=== PATIENT | female | born 1945 | race Caucasian/White ===

== ENCOUNTER 2016-06-17 12:13 | Inpatient (IN) | payer MEDICARE, OTHER ==
[~2016-06-17] VITALS: Ht 172.7 cm; Wt 62.7 kg
[~2016-06-17 12:13] MED LIST: ALBU8I INH; BUDE.5I NEB; HYDR-3580 PO; IPRA17I INH; LORA-475 PO; NEUR800T PO; NYSTA15T TOP; OLAN2.5 PO; PRED20 PO; QUET25 PO; RIVA10 PO; TUSSLIQ3 PO; Z.0.OXYGENDME NC
[2016-06-17 12:15] VITALS: BP 169/86; PULSE 106; RESP 16; TEMP 98.7; O2SAT 94
--- NOTE | 2016-06-17 12:37 | PD ---
HPI Chief Complaint: Pinon act Time Seen by Provider: 12:32 Travel History International Travel<30 days: No Contact w/Intl Traveler<30days: No Traveled to known affect area: No History of Present Illness HPI 70-year-old white female presents to emergency department under Pinon act by her medical doctor. The patient allegedly had refused to take her medications today. She has history of schizophrenia. They felt the patient was more paranoid and confused. The patient was placed under Pinon act and sent to the ER. The patient here denies any suicidal homicidal ideation. She states that she did take her medication yesterday. Review of the medication list indicates the patient didn't fact take her medications yesterday. The patient does complain of some upset stomach. She denies any fever chills. No nausea vomiting. No dysuria or frequency. No stooling issues. No toxic ingestions. No recent illnesses. PFSH Past Medical History Asthma: No Autoimmune Disease: No Blood Disorders: No Bipolar Disorder: Yes Anxiety: Yes Depression: Yes Cardiovascular Problems: Yes COPD: No Diabetes: No Diminished Hearing: No Gastrointestinal Disorders: Yes GERD: No Hepatitis: No Hiatal Hernia: No Hypertension: Yes Implanted Vascular Access Dvce: No Psychiatric: Yes Schizophrenia: Yes Sleep Apnea: No Ulcer: No PNEUMOCCOCAL Vaccine (Year): 2 Menopausal: Yes Past Surgical History Neurologic Surgery: Yes Other Surgery: Yes (PER MEDICAL RECORD) Social History Alcohol Use: No Tobacco Use: Yes (1 pack every 10 days) Substance Use: No Allergies-Medications (Allergen,Severity, Reaction): Coded Allergies: No Known Allergies (Verified , 06/17/16) Reported Meds & Prescriptions Reported Meds & Active Scripts Active Reported Geodon (Ziprasidone) 80 Mg Cap 160 Mg PO HS Quetiapine (Quetiapine Fumarate) 50 Mg Tab 50 Mg PO BID PRN Geodon (Ziprasidone) 80 Mg Cap 80 Mg PO DAILY Mapap (Acetaminophen) 325 Mg Tab 650 Mg PO Q4HR PRN Olanzapine 2.5 Mg Tab 2.5 Mg PO BID Lorazepam 2 Mg Tab 2 Mg PO BID Gabapentin 800 Mg Tab 800 Mg PO BID Prednisone 5 Mg Tab 5 Mg PO DAILY Thera-M (Multiple Vitamins W/ Minerals) 1 Tab 1 Tab PO DAILY Review of Systems ROS Limitations: Poor Historian Except as stated in HPI: all other systems reviewed are Neg Psychiatric: No: Anxiety, Depression, Suicidal Ideations, Disorder of Thought, Mood Disorder, Substance Abuse, Homicidal Ideation Physical Exam Narrative GENERAL: Well-nourished, well-developed patient. Patient is sitting in a chair holding onto her walker. Patient does have smacking. SKIN: Warm and dry. HEAD: Normocephalic and atraumatic. EYES: No scleral icterus. No injection or drainage. ENT: No nasal drainage noted. Mucous membranes pink. Airway patent. NECK: Supple, trachea midline. Moves head freely without obvious discomfort. CARDIOVASCULAR: Regular rate and rhythm 1/6 left sternal border. No gallops, or rubs. RESPIRATORY: Breath sounds equal bilaterally. No accessory muscle use. GASTROINTESTINAL: Abdomen soft, non-tender, nondistended. EXTREMITIES: No cyanosis or edema. BACK: Nontender without obvious deformity. No CVA tenderness. NEURO: Patient is alert and oriented to person and place. no sensorimotor deficits. Nonfocal. Normal speech. PSYCH: No delusions. No auditory or visual hallucinations. Data Data Last Documented VS Vital Signs Date Time Temp Pulse Resp B/P Pulse Ox O2 Delivery O2 Flow Rate FiO2 06/17/16 13:14 98.5 104 20 127/73 95 Room Air Orders Complete Blood Count With Diff (06/17/16 12:31) Comprehensive Metabolic Panel (06/17/16 12:31) Urinalysis - C+S If Indicated (06/17/16 12:31) Drug Screen, Random Urine (06/17/16 12:31) Electrocardiogram (06/17/16 12:31) Alcohol (Ethanol) (06/17/16 12:31) Psych Screen (06/17/16 12:31) Labs Laboratory Tests Test 06/17/16 13:20 White Blood Count 8.5 TH/MM3 Red Blood Count 5.07 MIL/MM3 Hemoglobin 14.9 GM/DL Hematocrit 44.7 % Mean Corpuscular Volume 88.3 FL Mean Corpuscular Hemoglobin 29.5 PG Mean Corpuscular Hemoglobin 33.4 % Concent Red Cell Distribution Width 14.5 % Platelet Count 281 TH/MM3 Mean Platelet Volume 8.7 FL Neutrophils (%) (Auto) 69.8 % Lymphocytes (%) (Auto) 19.6 % Monocytes (%) (Auto) 8.5 % Eosinophils (%) (Auto) 1.3 % Basophils (%) (Auto) 0.8 % Neutrophils # (Auto) 5.9 TH/MM3 Lymphocytes # (Auto) 1.7 TH/MM3 Monocytes # (Auto) 0.7 TH/MM3 Eosinophils # (Auto) 0.1 TH/MM3 Basophils # (Auto) 0.1 TH/MM3 CBC Comment DIFF FINAL Differential Comment Sodium Level 138 MEQ/L Potassium Level 4.6 MEQ/L Chloride Level 102 MEQ/L Carbon Dioxide Level 29.4 MEQ/L Anion Gap 7 MEQ/L Blood Urea Nitrogen 7 MG/DL Creatinine 0.73 MG/DL Estimat Glomerular Filtration 79 ML/MIN Rate Random Glucose 100 MG/DL Calcium Level 9.2 MG/DL Total Bilirubin 0.5 MG/DL Aspartate Amino Transf 32 U/L (AST/SGOT) Alanine Aminotransferase 20 U/L (ALT/SGPT) Alkaline Phosphatase 113 U/L Total Protein 7.4 GM/DL Albumin 3.4 GM/DL Ethyl Alcohol Level LESS THAN 3 MG/DL MDM Medical Decision Making Medical Screen Exam Complete: Yes Emergency Medical Condition: Yes Medical Record Reviewed: Yes Interpretation(s) Laboratory Tests Test 06/17/16 13:20 White Blood Count 8.5 TH/MM3 Red Blood Count 5.07 MIL/MM3 Hemoglobin 14.9 GM/DL Hematocrit 44.7 % Mean Corpuscular Volume 88.3 FL Mean Corpuscular Hemoglobin 29.5 PG Mean Corpuscular Hemoglobin 33.4 % Concent Red Cell Distribution Width 14.5 % Platelet Count 281 TH/MM3 Mean Platelet Volume 8.7 FL Neutrophils (%) (Auto) 69.8 % Lymphocytes (%) (Auto) 19.6 % Monocytes (%) (Auto) 8.5 % Eosinophils (%) (Auto) 1.3 % Basophils (%) (Auto) 0.8 % Neutrophils # (Auto) 5.9 TH/MM3 Lymphocytes # (Auto) 1.7 TH/MM3 Monocytes # (Auto) 0.7 TH/MM3 Eosinophils # (Auto) 0.1 TH/MM3 Basophils # (Auto) 0.1 TH/MM3 CBC Comment DIFF FINAL Differential Comment Sodium Level 138 MEQ/L Potassium Level 4.6 MEQ/L Chloride Level 102 MEQ/L Carbon Dioxide Level 29.4 MEQ/L Anion Gap 7 MEQ/L Blood Urea Nitrogen 7 MG/DL Creatinine 0.73 MG/DL Estimat Glomerular Filtration 79 ML/MIN Rate Random Glucose 100 MG/DL Calcium Level 9.2 MG/DL Total Bilirubin 0.5 MG/DL Aspartate Amino Transf 32 U/L (AST/SGOT) Alanine Aminotransferase 20 U/L (ALT/SGPT) Alkaline Phosphatase 113 U/L Total Protein 7.4 GM/DL Albumin 3.4 GM/DL Ethyl Alcohol Level LESS THAN 3 MG/DL Differential Diagnosis MDM: High Differential diagnoses: Schizophrenia, schizoaffective disorder, bipolar, anxiety, depression, adjustment reaction, mood disorder NOS, ODD, depressive disorder NOS, dementia, dementia with agitation, psychosis NOS, substance induced mood disorder, intermittent explosive disorder, Asperger syndrome, infection,electrolyte abnormality, malingering. Narrative Course Mental health screening discussed with the patient. Psychiatric screen ordered. Condition: Stable Pedro Rhoades Jun 17, 2016 12:37
[2016-06-17 13:14] VITALS: BP 127/73; PULSE 104; RESP 20; TEMP 98.5; O2SAT 95
[2016-06-17 13:42] LABS: AUTOMATED NEUTROPHIL # 5.9 TH/MM3 (1.8-7.7); BASOPHIL # 0.1 TH/MM3 (0-0.2); BASOPHIL % 0.8 % (0.0-2.0); EOSINOPHIL # 0.1 TH/MM3 (0-0.4); EOSINOPHIL % 1.3 % (0.0-4.0); HEMATOCRIT 44.7 % (35.0-46.0); HEMO FLAGS DIFF FINAL; LYMPH % 19.6 % (9.0-44.0); LYMPHOCYTE # 1.7 TH/MM3 (1.0-4.8); MEAN CELL VOLUME 88.3 FL (80.0-100.0); MEAN CORPUSCULAR HEMOGLOBIN 29.5 PG (27.0-34.0); MEAN CORPUSCULAR HGB CONC 33.4 % (32.0-36.0); MONO % 8.5 % (0.0-8.0); NEUT % 69.8 % (16.0-70.0); PLATELET COUNT 281 TH/MM3 (150-450); RED BLOOD COUNT 5.07 MIL/MM3 (4.00-5.30); RED CELL DISTRIBUTION WIDTH 14.5 % (11.6-17.2); WHITE BLOOD COUNT 8.5 TH/MM3 (4.0-11.0)
[2016-06-17] MEDS ORDERED: PRED5TAB PO (13:45)
[2016-06-17] MEDS ORDERED: OLAN2.5T PO (13:45)
[2016-06-17] MEDS ORDERED: QUET5TAB PO (13:45)
[2016-06-17] MEDS ORDERED: LORA2TAB7 PO (13:45)
[2016-06-17] MEDS ORDERED: THERTAB17 PO (13:45)
[2016-06-17] MEDS ORDERED: MAPA325T PO (13:45)
[2016-06-17] MEDS ORDERED: GEOD80CA PO ×2 (13:45)
[2016-06-17] MEDS ORDERED: GABA800T PO (13:45)
[2016-06-17 13:55] LABS: ANION GAP 7 MEQ/L (5-15); AST (GOT) 32 U/L (15-37); BICARBONATE 29.4 MEQ/L (21.0-32.0); BLOOD UREA NITROGEN 7 MG/DL (7-18); CHLORIDE 102 MEQ/L (98-107); GLOMERULAR FILTRATION RATE 79 ML/MIN (>89); SODIUM (NA) 138 MEQ/L (136-145)
[2016-06-17 13:56] LABS: POTASSIUM 4.6 MEQ/L (3.5-5.1)
[2016-06-17 14:04] LABS: ALKALINE PHOSPHATASE 113 U/L (45-117); ALT (GPT) 20 U/L (10-53); TOTAL BILIRUBIN ADULT 0.5 MG/DL (0.2-1.0)
[2016-06-17 16:12] LABS: BLOOD, URINE NEG (NEG); COMMENT (UR) CULT NOT INDICATED; CULTURE IF INDICATED CULT NOT INDICATED; GLUCOSE,URINE NEG (NEG); KETONE, URINE NEG (NEG); NITRITE,URINE NEG (NEG); PH, URINE 6.5 (5.0-8.5); SQUAMOUS EPITHELIAL CELL URINE 10 /hpf (0-5); URINE COLOR YELLOW (YELLW/STRAW)
[2016-06-17 16:35] LABS: AMPHETAMINE, URINE NEG (NEG); BARBITURATES, URINE NEG (NEG); COCAINE, URINE NEG (NEG)
[2016-06-17 18:39] VITALS: BP 158/76; PULSE 90; RESP 18; O2SAT 96
[2016-06-17 19:12] VITALS: BP 156/72; PULSE 86; RESP 20; O2SAT 96
[2016-06-17] MEDS ORDERED: OLANZapine ODT 5 MG TAB PO ONE (20:45)
[2016-06-17] MEDS ORDERED: OLANZapine IM 10 MG VIAL IM ONE (20:45)
[2016-06-17 22:36] VITALS: BP 138/91; PULSE 92; RESP 18; O2SAT 95
[2016-06-18 02:00] VITALS: RESP 20
[2016-06-18 06:22] VITALS: RESP 18
[2016-06-18] MEDS ORDERED: ACETAMINOPHEN 325 MG TAB PO PRN (07:15)
[2016-06-18] MEDS ORDERED: MAGNESIUM HYDROXIDE SUSP 30 ML CUP PO PRN (07:15)
[2016-06-18] MEDS ORDERED: ALUMINUM/MAGNESIUM/SIMETH 30 ML CUP PO PRN (07:15)
[2016-06-18] MEDS ORDERED: OLANZapine IM 10 MG VIAL IM ONE (07:15)
--- NOTE | 2016-06-18 07:19 | HHI.HP ---
Provisional Diagnosis Admission Date Jun 18, 2016 at 07:02 [place] I. 1. Schizoaffective disorder, bipolar type, acute exacerbation [place] II. Deferred [place] V. GAF is 30 presently Certification of Person's Competence To Provide Express and Informed Consent I have personally examined Camilla Sun , a person being served at [facility] on, Jun 18, 2016 07:10. Express and informed consent means consent voluntarily given in writing, by a competent person, after sufficient explanation and disclosure of the subject matter involved to enable the person to make a knowing and willful decision without any element of force, fraud, deceit, duress, or other form of constraint or coercion. This person is 18 years of age or older, is not now known to be incompetent to consent to treatment with a guardian advocate, and does not have a health care surrogate or proxy currently making medical treatment decisions. I have found this person to be one of the following: [] Competent to provide express and informed consent, as defined above, for voluntary admission to this facility and is competent to provide express and informed consent for treatment. He/she has the consistent capacity to make well reasoned, willful, and knowing decisions concerning his or her medical or mental health treatment. The person fully and consistently understands the purpose of the admission for examination/placement and is fully capable of personally exercising all rights [place] [x] Incompetent to provide express and informed consent to voluntary admission, and this is incompetent to provide express and informed consent to treatment. The person must be transferred to involuntary status and a petition for a guardian advocate filed with the Circuit Court. [] Refusing to provide express and informed consent to voluntary admission but is competent to provide express and informed consent for treatment. The person must be discharged or transferred to involuntary status. Form shall be completed within 24 hours of a person's arrival at the receiving facility and filed in the clinical record of each person: 1. Admitted on a voluntary basis 2. Permitted to provide express and informed consent to his/her own treatment 3. Allowed to transfer from involuntary to voluntary status 4. Prior to permitting a person to consent to his or her own treatment after having been previously found incompetent to consent to treatment. History of Present Illness Capacity: Lacks Capacity HPI Ms. Sun is a 70-year-old female with a history of bipolar illness versus primary psychotic disorder who presents under a Pinon act from her [facility] facility alleging agitation and medication refusal. Reviewing the electronic medical record, I note the patient was admitted psychiatrically most recently here under Dr. Garcia in 2012 with a discharge diagnosis of bipolar manic. Patient seen and examined. Case discussed with nurse in the J-pod. Per nursing staff, patient has been quite agitated in the J-pod and has required Zyprexa IM for the management of agitation. On my examination this morning, patient is apparently somewhat calmer than she had previously been her remains quite irritable and irascible. Her thought process is quite disorganized. She says "I don't know why" she is here. She is oriented to person and [place]. She denies living at [facility]. She says "they moved to fast. The room is bugged. I can't take it anymore over there. I don't want to stay there. I don 't want to stay here." When I ask about audiovisual hallucination she says "I have voices. Loud couch." She also endorses hearing static. She is quite dysphoric. She denies any SI or HI but seems unreliable to contract for safety in her present state. Limited psychiatric interview because of patient's degree of thought disorganization. Unable to obtain meaningful past psychiatric, family, chemical dependency or social history from the patient because of her degree of thought disorganization. She apparently has some sort of history. She is unable to tell me what branch of the that she served in. She says that she is unmarried and has no children. She says that she attended [employer] but cannot tell me what she studied there. I reviewed the documentation that accompanied the patient from her facility including the medication administration record. Review of Systems ROS Limitations: Uncooperative, Psychotic, Poor Historian Other Patient complains of a burning sensation in her skin as well as some shortness of breath. No other physical complaints at this time. Past Psych History Psychological trauma history Unable to obtain due to thought disorganization Violence risk - others (6 mos) Elevated. Patient is irritable and agitated Violence risk - self (6 mos) Concerned that this is elevated due to self-neglect in the setting of psychosis Substance Abuse History Drugs/Alcohol past 12 months Unable to obtain from patient due to thought disorganization. Toxicology negative. Past Family Social History Coded Allergies: No Known Allergies (Verified , 06/17/16) Past Medical History See electronic medical record Reported Medications Ziprasidone (Geodon)80 Mg [id number] Mg PO HS #60 CAP Ref 0 06/17/16 Quetiapine 50 Mg Tab50 Mg PO BID PRN (AGITATION) #60 TAB Ref 0 06/17/16 Ziprasidone (Geodon)80 Mg Cap80 Mg PO DAILY #60 CAP Ref 0 06/17/16 Acetaminophen (Mapap)325 Mg [id number] Mg PO Q4HR PRN (PAIN) Ref 0 06/17/16 Olanzapine 2.5 Mg Tab2.5 Mg PO BID #60 TAB Ref 0 06/17/16 Lorazepam 2 Mg Tab2 Mg PO BID Ref 0 06/17/16 Gabapentin 800 Mg [id number] Mg PO BID #90 TAB Ref 0 06/17/16 Prednisone 5 Mg Tab5 Mg PO DAILY Ref 0 06/17/16 Multiple Vitamins W/ Minerals (Thera-M)1 Tab1 Tab PO DAILY Ref 0 06/17/16 Discontinued Reported Medications Tussin Dm 2 Tsp PO Q6 PRN (NASAL CONGESTION AND/OR COUGH) 04/23/14 Discontinued Scripts Budesonide (Pulmicort)0.5 Mg/2 Ml Sus0.5 Mg NEB Q12HR NEB 30 Days Prov:Melina Chambers MD 02/25/16 Atrovent Hfa17 Mcg 12.9 Gm Aero2 Puff INH QID PRN (sob/wheezing ) 30 Days Prov:Melina Chambers MD 02/25/16 Albuterol Sulfate 8 GM Inhaler (Ventolin Hfa)8 Gm Aero2 Puff INH Q6 #1 BOX * SHAKE WELL BEFORE USE * Prov:Melina Chambers MD 02/25/16 Prednisone (Deltasone 20 Mg Tab)20 Mg Tab20 Mg PO DAILY #6 TAB Prov:Melina Chambers MD 02/24/16 Rivaroxaban (Xarelto 10 Mg Tab)10 Mg Tab10 Mg PO DAILY #14 TAB Prov:KRYS PARKER PA-C 02/22/16 Hydrocodone/Acetaminophen 7.5 mg/325 mg 1 Tab1 Tab PO Q4H PRN (PAIN) #60 TAB Prov:KRYS PARKER PA-C 02/22/16 Nystatin (Mycostatin Oint 15 gm)15 Applic/15 Gm Oint1 Applic TOP Q12 7 Days Prov:Stephania Alcazar MD 05/08/14 Current Medications Medications (Trade) Dose Ordered Sig/Britany Route Start Time Stop Time Status Last Admin (Neurontin) 800 mg BID PO 06/18/16 09:00 UNV (Ativan) 2 mg BID PO 06/18/16 09:00 UNV (Theragran M Tab) 1 tab DAILY PO 06/18/16 09:00 UNV (Deltasone) 5 mg DAILY PO 06/18/16 09:00 UNV (Ativan) 0.5 mg Q12H PRN PO 06/18/16 07:15 UNV (Ativan Inj) 0.5 mg Q12H PRN IM 06/18/16 07:15 UNV (Benadryl) 50 mg Q6H PRN PO 06/18/16 07:15 UNV (Benadryl Inj) 50 mg Q6H PRN IM 06/18/16 07:15 UNV (Benadryl) 50 mg HS PRN PO 06/18/16 07:15 UNV (Tylenol) 650 mg Q4H PRN PO 06/18/16 07:15 UNV (Milk Of Magnesia Liq) 30 ml DAILY PRN PO 06/18/16 07:15 UNV (Mag-Al Plus Susp Liq) 30 ml Q6H PRN PO 06/18/16 07:15 UNV (Habitrol 21 Mg Patch.24 Hr) 1 patch DAILY T-DERMAL 06/18/16 09:00 UNV Miscellaneous Information 1 DAILY T-DERMAL 06/18/16 09:00 UNV (Geodon) 80 mg BIDPC PO 06/18/16 09:00 UNV (ZyPREXA ZYDIS ODT) 5 mg Q12HR PO 06/18/16 09:00 UNV Family History Unable to obtain from patient due to thought disorganization Social History Unable to obtain from patient due to thought disorganization Patient's Strengths (min. 2) In a monitored setting. Verbally fluent. Physical Exam Physical examination was completed in the emergency room by the ER staff and the patient was medically cleared. On my examination today, I note the patient has several small lesions scattered around her body, I can to bite hurley but otherwise has no visible skin lesions. No motoric abnormalities noted. Labs and vital signs reviewed. Vital Signs Vital Signs Date Time Temp Pulse Resp B/P Pulse Ox O2 Delivery O2 Flow Rate FiO2 06/18/16 06:22 18 06/17/16 22:36 92 138/91 95 06/17/16 18:39 Room Air 06/17/16 13:14 98.5 Lab Results Item Value Date Time White Blood Count 8.5 TH/MM3 06/17/16 1320 Hemoglobin 14.9 GM/DL 06/17/16 1320 Platelet Count 281 TH/MM3 06/17/16 1320 Sodium Level 138 MEQ/L 06/17/16 1320 Potassium Level 4.6 MEQ/L 06/17/16 1320 Carbon Dioxide Level 29.4 MEQ/L 06/17/16 1320 Chloride Level 102 MEQ/L 06/17/16 1320 Blood Urea Nitrogen 7 MG/DL 06/17/16 1320 Creatinine 0.73 MG/DL 06/17/16 1320 Aspartate Amino Transf (AST/SGOT) 32 U/L 06/17/16 1320 Alanine Aminotransferase (ALT/SGPT) 20 U/L 06/17/16 1320 Alkaline Phosphatase 113 U/L 06/17/16 1320 Toxicology alcohol level negative. Urinalysis fairly bland. Mental Status Examination Patient is in hospital gown. She is disheveled. She is awake and alert and oriented to person and [place]. No abnormal motor movements noted. Speech is rambling and somewhat garbled. Language and fund of knowledge are difficult to assess given thought disorganization but may be somewhat reduced for age. Mood and affect are quite dysphoric and restricted. Thought process disorganized. Loosening of associations present. Patient appears frankly internally stimulated. Paranoia is present. Audiovisual hallucinations are present. She denies SI or HI but is likely unreliable to contract for safety. Insight and judgment are presently poor. Previous Suicide Attempts: No Previous Homicide Attempts: No Assessment & Plan Problem List: (1) Schizoaffective disorder ICD Code: F25.9 Assessment & Plan Estimated LOS: days this is a 70-year-old female with psychiatric history as detailed above presents under a Pinon act from her care facility. On my examination today, patient remains quite irritable and disorganized and appears to be experiencing a decompensated psychotic episode. She requires psychiatric admission at this time for safety, observation and stabilization. --Admit inpatient --Involuntary status. I completed first opinion. Consult for second opinion. Request healthcare surrogate and guardian advocate. --Consult the hospitalist for management of patient's medical conditions --Consult physical therapy. Fall precautions. --Patient does seem to of had a positive response to Zyprexa and I note that she is prescribed this at her facility. I will taper her Geodon somewhat and titrate her Zyprexa. I will continue her scheduled Ativan. --Additional Ativan/Benadryl as needed for anxiety. Benadryl also as needed for EPS or insomnia. --Vitals every shift --Counselors to see --Disposition planning --Estimated length of stay: 10-13 days Discharge Planning Per Dr. Stern Request HC Surrog/Guard Advoc?: Yes Problem Qualifiers (1) Schizoaffective disorder: Qualified Code: F25.0 - Schizoaffective disorder, bipolar type El Garcia MD Jun 18, 2016 07:19
[2016-06-18 09:00] VITALS: BP 127/90; PULSE 80; RESP 16
[2016-06-18] MEDS: LORazepam 2 MG TAB PO SCH ×2 (09:00→20:04)
[2016-06-18] MEDS: OLANZapine ODT 5 MG TAB PO SCH ×2 (09:00→20:04)
[2016-06-18] MEDS: REMOVE OLD PATCH T-DERMAL SCH (09:00)
[2016-06-18] MEDS: ZIPRASIDONE HCL 80 MG CAP PO SCH ×2 (09:00→17:43)
--- NOTE | 2016-06-18 09:32 | PD.CONS ---
Provisional Diagnosis Admission Date Jun 18, 2016 at 07:02 [place] [facility]. 1. Schizoaffective disorder, bipolar type, acute exacerbation [place] II. Deferred [place] V. GAF is 30 presently History of Present Illness Service Psychiatry Consult Requested By Primary Care Physician No Primary Care Physician HPI Ms. Sun is a 70-year-old female with a history of bipolar illness versus primary psychotic disorder who presents under a Pinon act from her [facility] facility alleging agitation and medication refusal. Reviewing the electronic medical record, I note the patient was admitted psychiatrically most recently here under Dr. Garcia in 2012 with a discharge diagnosis of bipolar manic. Patient seen and examined. Case discussed with nurse in the J-pod. Per nursing staff, patient has been quite agitated in the J-pod and has required Zyprexa IM for the management of agitation. On my examination this morning, patient is apparently somewhat calmer than she had previously been her remains quite irritable and irascible. Her thought process is quite disorganized. She says "I don't know why" she is here. She is oriented to person and [place]. She denies living at [facility]. She says "they moved to fast. The room is bugged. I can't take it anymore over there. I don't want to stay there. I don 't want to stay here." When I ask about audiovisual hallucination she says "I have voices. Loud couch." She also endorses hearing static. She is quite dysphoric. She denies any SI or HI but seems unreliable to contract for safety in her present state. Limited psychiatric interview because of patient's degree of thought disorganization. Unable to obtain meaningful past psychiatric, family, chemical dependency or social history from the patient because of her degree of thought disorganization. She apparently has some sort of history. She is unable to tell me what branch of the that she served in. She says that she is unmarried and has no children. She says that she attended [employer] but cannot tell me what she studied there. I reviewed the documentation that accompanied the patient from her facility including the medication administration record. 06/18/16 Above note dictated by Dr. El garcia reviewed and agreed with. Patient is 70-year-old white female well known to us from multiple prior hospitalizations comes her under Pinon act from her intermediate. Patient seen and initially admitted by to the 2500 unit per I will follow the patient. Dr. Garcia has signed first opinion petition supporting Pinon act. Patient seen by me on unit patient continues loud intrusive profane with rapid pressured speech showing no insight into her disease. At this time I agree with Dr. chair olsen patient does meet criteria for involuntary psychiatric hospitalization under the Pinon act. Thus I'll cosign second opinion petition supporting Pinon act Past Family Social History Coded Allergies: No Known Allergies (Verified , 06/17/16) Reported Medications Ziprasidone (Geodon)80 Mg [id number] Mg PO HS #60 CAP Ref 0 06/17/16 Quetiapine 50 Mg Tab50 Mg PO BID PRN (AGITATION) #60 TAB Ref 0 06/17/16 Ziprasidone (Geodon)80 Mg Cap80 Mg PO DAILY #60 CAP Ref 0 06/17/16 Acetaminophen (Mapap)325 Mg [id number] Mg PO Q4HR PRN (PAIN) Ref 0 06/17/16 Olanzapine 2.5 Mg Tab2.5 Mg PO BID #60 TAB Ref 0 06/17/16 Lorazepam 2 Mg Tab2 Mg PO BID Ref 0 06/17/16 Gabapentin 800 Mg [id number] Mg PO BID #90 TAB Ref 0 06/17/16 Prednisone 5 Mg Tab5 Mg PO DAILY Ref 0 06/17/16 Multiple Vitamins W/ Minerals (Thera-M)1 Tab1 Tab PO DAILY Ref 0 06/17/16 Discontinued Reported Medications Tussin Dm 2 Tsp PO Q6 PRN (NASAL CONGESTION AND/OR COUGH) 04/23/14 Discontinued Scripts Budesonide (Pulmicort)0.5 Mg/2 Ml Sus0.5 Mg NEB Q12HR NEB 30 Days Prov:Melina Chambers MD 02/25/16 Atrovent Hfa17 Mcg 12.9 Gm Aero2 Puff INH QID PRN (sob/wheezing ) 30 Days Prov:Melina Chambers MD 02/25/16 Albuterol Sulfate 8 GM Inhaler (Ventolin Hfa)8 Gm Aero2 Puff INH Q6 #1 BOX * SHAKE WELL BEFORE USE * Prov:Melina Chambers MD 02/25/16 Prednisone (Deltasone 20 Mg Tab)20 Mg Tab20 Mg PO DAILY #6 TAB Prov:Melina Chambers MD 02/24/16 Rivaroxaban (Xarelto 10 Mg Tab)10 Mg Tab10 Mg PO DAILY #14 TAB Prov:KRYS PARKER PA-C 02/22/16 Hydrocodone/Acetaminophen 7.5 mg/325 mg 1 Tab1 Tab PO Q4H PRN (PAIN) #60 TAB Prov:KRYS PARKER PA-C 02/22/16 Nystatin (Mycostatin Oint 15 gm)15 Applic/15 Gm Oint1 Applic TOP Q12 7 Days Prov:Stephania Alcazar MD 05/08/14 Current Medications Medications (Trade) Dose Ordered Sig/Britany Route Start Time Stop Time Status Last Admin (Neurontin) 800 mg BID PO 06/18/16 09:00 (Ativan) 2 mg BID PO 06/18/16 09:00 (Theragran M Tab) 1 tab DAILY PO 06/18/16 09:00 (Deltasone) 5 mg DAILY PO 06/18/16 09:00 (Ativan) 0.5 mg Q12H PRN PO 06/18/16 07:15 (Ativan Inj) 0.5 mg Q12H PRN IM 06/18/16 07:15 (Benadryl) 50 mg Q6H PRN PO 06/18/16 07:15 (Benadryl Inj) 50 mg Q6H PRN IM 06/18/16 07:15 (Benadryl) 50 mg HS PRN PO 06/18/16 07:15 (Tylenol) 650 mg Q4H PRN PO 06/18/16 07:15 (Milk Of Magnesia Liq) 30 ml DAILY PRN PO 06/18/16 07:15 (Mag-Al Plus Susp Liq) 30 ml Q6H PRN PO 06/18/16 07:15 (Habitrol 21 Mg Patch.24 Hr) 1 patch DAILY T-DERMAL 06/18/16 09:00 Miscellaneous Information 1 DAILY T-DERMAL 06/18/16 09:00 (Geodon) 80 mg BIDPC PO 06/18/16 09:00 (ZyPREXA ZYDIS ODT) 5 mg Q12HR PO 06/18/16 09:00 Patient's Strengths (min. 2) In a monitored setting. Verbally fluent. Physical Exam Vital Signs Vital Signs Date Time Temp Pulse Resp B/P Pulse Ox O2 Delivery O2 Flow Rate FiO2 06/18/16 06:22 18 06/17/16 22:36 92 138/91 95 06/17/16 18:39 Room Air 06/17/16 13:14 98.5 Mental Status Examination Alert confusing loud profane intense elderly white female with intense eye contact Appearance Disheveled Speech: Pressured, Rapid, Circumstantial, Tangential Orientation: Person Memory: Impaired (describe) Thought Process: Loose Association Thought Content: Paranoid (mildly) Language Burmese Fund of Knowledge Poor Hallucination Type: None (denies) Attention and Concentration: Easily Distracted Suicidal Ideation: No (vague) Previous Suicide Attempts: No Homicidal Ideation: No Previous Homicide Attempts: No Insight: Poor Judgement: Poor Affect: Other (increased range and intensity) Mood: Angry, Irritable, Manic Motor Activity: Normal gait Assessment & Plan Problem List: (1) Schizoaffective disorder ICD Code: F25.9 Assessment & Plan Estimated LOS: 5-7 days patient does meet criteria for involuntary psychiatric hospitalization Dr. garcia has done first opinion petition supporting Pinon act I have done second opinion supporting it also. I also concurred that patient does not have capacity we'll ask for healthcare surrogate and guardian advocate Continue medications per the reconciliation further assess Discharge Planning To be determined Request HC Surrog/Guard Advoc?: Yes Problem Qualifiers (1) Schizoaffective disorder: Qualified Code: F25.0 - Schizoaffective disorder, bipolar type Brad Stern MD Jun 18, 2016 09:32
[2016-06-18] MEDS: LORazepam 2 MG/ML VIAL IM PRN (10:51)
--- NOTE | 2016-06-18 12:00 | EKG ---
Date Performed: 06/17/2016 Time Performed: 13:11:22 PTAGE: 70 years EKG: Sinus rhythm NORMAL ECG PREVIOUS TRACING : 02/11/2016 17.38 DOCTOR: Glen Brizuela Interpretating Date/Time 06/18/2016 11:58:49
[2016-06-18] MEDS: GABAPENTIN 400 MG CAP PO SCH ×2 (13:00→20:04)
[2016-06-18] MEDS: predniSONE 5 MG TAB PO SCH (13:00)
[2016-06-18] MEDS: NICOTINE 21 MG/24 HR PATCH T-DERMAL SCH (13:01)
[2016-06-18] MEDS: MULTIVITAMINS/MINERALS THERAPEUTIC TAB PO SCH (13:01)
--- NOTE | 2016-06-18 14:21 | PD.CONS ---
HPI Service [facility] Consult Requested By Psychiatry team Reason for Consult Medical management Primary Care Physician No Primary Care Physician Diagnoses: History of Present Illness Patient is a 70-year-old white female who came in to the hospital under Pinon act by her medical doctor. As per ED notes patient has refused to take her medications, with history of schizophrenia, medical doctor thinks that patient is more paranoid and confused. Admitted to inpatient psychiatry unit for further evaluation. Consulted for medical management. Patient seen today. States she is doing well. Occasional shortness of breath and cough, nonproductive. Otherwise, denies pain and discomfort. Denies chest pain, palpitations, headaches, dizziness. Denies fevers, chills, n/v/d. Patient reports she continues to smoke, but now since being inpatient psych she has the patch Review of Systems ROS Limitations: Poor Historian Constitutional: COMPLAINS OF: Fever, DENIES: Chills Respiratory: COMPLAINS OF: Cough, Wheezing, Sputum production, Shortness of breath Cardiovascular: COMPLAINS OF: Dyspnea on Exertion, Orthopnea, DENIES: Chest pain, Palpitations Gastrointestinal: DENIES: Constipation, Diarrhea, Nausea, Vomiting Neurologic: DENIES: Headache, Paresthesias Past Family Social History Allergies: Coded Allergies: No Known Allergies (Verified , 06/17/16) Past Medical History Bipolar disorder Anxiety Depression Schizophrenia History of respiratory failure, COPD 02/2016 Past Surgical History 02/2016 status post left bipolar hemiarthroplasty Reported Medications Geodon (Ziprasidone) 80 Mg Cap 160 Mg PO HS Quetiapine (Quetiapine Fumarate) 50 Mg Tab 50 Mg PO BID PRN Geodon (Ziprasidone) 80 Mg Cap 80 Mg PO DAILY Mapap (Acetaminophen) 325 Mg Tab 650 Mg PO Q4HR PRN Olanzapine 2.5 Mg Tab 2.5 Mg PO BID Lorazepam 2 Mg Tab 2 Mg PO BID Gabapentin 800 Mg Tab 800 Mg PO BID Prednisone 5 Mg Tab 5 Mg PO DAILY Thera-M (Multiple Vitamins W/ Minerals) 1 Tab 1 Tab PO DAILY Active Ordered Medications Current Medications Medications (Trade) Dose Ordered Sig/Britany Route Start Time Stop Time Status Last Admin (Neurontin) 800 mg BID PO 06/18/16 09:00 06/18/16 13:00 (Ativan) 2 mg BID PO 06/18/16 09:00 (Theragran M Tab) 1 tab DAILY PO 06/18/16 09:00 06/18/16 13:01 (Deltasone) 5 mg DAILY PO 06/18/16 09:00 06/18/16 13:00 (Ativan) 0.5 mg Q12H PRN PO 06/18/16 07:15 (Ativan Inj) 0.5 mg Q12H PRN IM 06/18/16 07:15 06/18/16 10:51 (Benadryl) 50 mg Q6H PRN PO 06/18/16 07:15 (Benadryl Inj) 50 mg Q6H PRN IM 06/18/16 07:15 (Benadryl) 50 mg HS PRN PO 06/18/16 07:15 (Tylenol) 650 mg Q4H PRN PO 06/18/16 07:15 (Milk Of Magnesia Liq) 30 ml DAILY PRN PO 06/18/16 07:15 (Mag-Al Plus Susp Liq) 30 ml Q6H PRN PO 06/18/16 07:15 (Habitrol 21 Mg Patch.24 Hr) 1 patch DAILY T-DERMAL 06/18/16 09:00 06/18/16 13:01 Miscellaneous Information 1 DAILY T-DERMAL 06/18/16 09:00 (Geodon) 80 mg BIDPC PO 06/18/16 09:00 06/18/16 09:00 (ZyPREXA ZYDIS ODT) 5 mg Q12HR PO 06/18/16 09:00 06/18/16 09:00 Social History Denies alcohol use Current smoker 1 pack over 10 days Denies illicit drug use Physical Exam Vital Signs Vital Signs Date Time Temp Pulse Resp B/P Pulse Ox O2 Delivery O2 Flow Rate FiO2 06/18/16 06:22 18 06/18/16 02:00 20 06/17/16 22:36 92 18 138/91 95 06/17/16 19:12 86 20 156/72 96 06/17/16 18:39 90 18 158/76 96 Room Air Physical Exam GENERAL: This is a well-nourished, well-developed patient, in no apparent distress. SKIN: No rashes, ecchymoses or lesions. Cool and dry. HEAD: Atraumatic. Normocephalic. EYES: Pupils equal round and reactive. No injection or drainage. ENT: Nose without bleeding. Throat without erythema. Airway patent. NECK: Trachea midline. No JVD or lymphadenopathy. CARDIOVASCULAR: Regular rate and rhythm without murmurs, gallops, or rubs. RESPIRATORY: Moderate air exchange. No wheezing, no crackles. No accessory muscle use GASTROINTESTINAL: Abdomen soft, non-tender, nondistended. Bowel sounds active 4 MUSCULOSKELETAL: Extremities without clubbing, cyanosis, or edema. NEUROLOGICAL: Awake and alert. Confused. Motor and sensory grossly within normal limits. Normal speech. Laboratory Laboratory Tests Test 06/17/16 15:40 Urine Color YELLOW Urine Turbidity HAZY Urine pH 6.5 Urine Specific [place] 1.014 Urine Protein NEG Urine Glucose (UA) NEG Urine Ketones NEG Urine Occult Blood NEG Urine Nitrite NEG Urine Bilirubin NEG Urine Urobilinogen LESS THAN 2.0 Urine Leukocyte Esterase MOD Urine RBC 2 Urine WBC 7 Urine Squamous Epithelial 10 Cells Microscopic Urinalysis Comment CULT NOT INDICATED Urine Opiates Screen NEG Urine Barbiturates Screen NEG Urine Amphetamines Screen NEG Urine Benzodiazepines Screen NEG Urine Cocaine Screen NEG Urine Cannabinoids Screen NEG Result Diagram: 06/17/16 1320 06/17/16 1320 Assessment and Plan Problem List: (1) Schizoaffective disorder ICD Code: F25.9 Status: Acute (2) COPD (chronic obstructive pulmonary disease) with emphysema ICD Code: J43.9 Status: Acute Assessment and Plan Patient is a 70-year-old white female who came in to the hospital under Pinon act by her medical doctor. Admitted to inpatient psychiatric unit for further evaluation. Consulted for medical management. Patient was last admission 2015 status post fall with left hip fracture, status post left bipolar hemiarthroplasty done by Dr. Arias. During the time of her hospitalization she developed respiratory failure, weaned off O2 and was discharged home. Schizophrenia - managed by psychiatry team COPD - continue home meds prednisone 5 mg daily - DuoNeb sched and when necessary - Chest x-ray ordered Tobacco use - counseled. Nicotine patch. CBC and BMP unremarkable, UA negative DVT prop early ambulation Thank you for this consultation. Written by Layla Oneal, acting as scribe for Dr. Worthington on 06/18/16 at 15:10. The documentation accurately reflects the work performed [id number] by me on at 15:10. Code Status Full code Discussed Condition With Patient, nursing Problem Qualifiers (1) Schizoaffective disorder: Qualified Code: F25.0 - Schizoaffective disorder, bipolar type Layla Friedman Jun 18, 2016 14:21 Cl Worthington DO Jun 18, 2016 22:12
[2016-06-18] MEDS ORDERED: RESP: ALBUTEROL 2.5 MG/IPRATROPIUM 0.5 MG NEB (PRN) NEB (16:15)
--- NOTE | 2016-06-18 17:19 | RADRPT ---
EXAM DATE/TIME: 06/18/2016 16:43 [facility] COMPARISON: CHEST SINGLE AP, February 11, 2016, 18:11. INDICATIONS : Evaluate for COPD. MEDICAL HISTORY : Unobtainable SURGICAL HISTORY : Unobtainable ENCOUNTER: Initial ACUITY: 1 day PAIN SCORE: Non-responsive. LOCATION: chest FINDINGS: A single view of the chest demonstrates the lungs to be symmetrically aerated without evidence of mas s, infiltrate or effusion. The cardiomediastinal contours are unremarkable. Chronic posttraumatic de formity of the right shoulder.. CONCLUSION: No acute disease. Brad Tucker MD on June 18, 2016 at 17:17 Board Certified Radiologist. This report was verified electronically.
[2016-06-18 18:00] VITALS: BP 112/68; PULSE 96; RESP 18; TEMP 98.4; O2SAT 94
[2016-06-18] MEDS: RESP: ALBUTEROL 2.5 MG/IPRATROPIUM 0.5 MG NEB (SCH) NEB (20:00)
[2016-06-19 05:59] VITALS: BP 115/66; PULSE 93; RESP 18; TEMP 98.3; O2SAT 95
[2016-06-19 06:28] VITALS: BP 115/66; PULSE 93; RESP 17; TEMP 98.3; O2SAT 96
[2016-06-19 08:28] LABS: ANION GAP 10 MEQ/L (5-15); BICARBONATE 28.1 MEQ/L (21.0-32.0); BLOOD UREA NITROGEN 12 MG/DL (7-18); CHLORIDE 102 MEQ/L (98-107); GLOMERULAR FILTRATION RATE 102 ML/MIN (>89); HDL CHOLESTEROL 76.3 MG/DL (40.0-60.0); LDL CHOLESTEROL 43 MG/DL (0-99); POTASSIUM 3.9 MEQ/L (3.5-5.1); SODIUM (NA) 140 MEQ/L (136-145)
[2016-06-19] MEDS: RESP: ALBUTEROL 2.5 MG/IPRATROPIUM 0.5 MG NEB (SCH) NEB ×2 (08:57→19:57)
[2016-06-19] MEDS: REMOVE OLD PATCH T-DERMAL SCH (09:00)
--- NOTE | 2016-06-19 09:38 | HHI.PYPN ---
Subjective Remarks Patient seen today in day room, patient walking around with walker. Patient is alert calm pleasant making good eye contact with me, is recognizing me without difficulty. Her paranoia irritability and remarkably. Patient compliant with medications. For now continue treatment Review of Systems Except as stated in HPI: all other systems reviewed are Neg Objective Alert: Yes [place]: Person, Place, Situation Mood: Calm Affect: Labile, Restricted Memory Intact: Comment (poor) Hallucinations: Other (denies) Delusions: Yes Delusion Type: Paranoid (diminished today) Suicidal: Ideation (denies) Homicidal: Ideation (denies) Insight/Judgement Very poor Labs Test 06/19/16 06:46 Sodium Level 140 MEQ/L Potassium Level 3.9 MEQ/L Chloride Level 102 MEQ/L Carbon Dioxide Level 28.1 MEQ/L Anion Gap 10 MEQ/L Blood Urea Nitrogen 12 MG/DL Creatinine 0.58 MG/DL Estimat Glomerular Filtration 102 ML/MIN Rate Random Glucose 84 MG/DL Calcium Level 9.5 MG/DL Triglycerides Level 89 MG/DL Cholesterol Level 137 MG/DL LDL Cholesterol 43 MG/DL HDL Cholesterol 76.3 MG/DL Cholesterol/HDL Ratio 1.79 RATIO Vitals/IOs Vital Signs Date Time Temp Pulse Resp B/P Pulse Ox O2 Delivery O2 Flow Rate FiO2 06/19/16 06:28 98.3 93 17 115/66 96 06/17/16 18:39 Room Air Intake and Output 06/18/16 06/18/16 06/18/16 07:59 15:59 23:59 Intake Total 840 ml Balance 840 ml Assessment & Plan Problem List: (1) Schizoaffective disorder ICD Code: F25.9 Assessment & Plan Estimated LOS: days patient showing some improvement today, has been compliant with medications, now continue treatment Justification for Cont. Inpt. At this time patient was significantly decompensated placed in the lower level of care Discharge Planning To be determined Request HC Surrog/Guard Advoc?: Yes Problem Qualifiers (1) Schizoaffective disorder: Qualified Code: F25.0 - Schizoaffective disorder, bipolar type Brad Stern MD Jun 19, 2016 09:37
[2016-06-19] MEDS: ZIPRASIDONE HCL 80 MG CAP PO SCH ×2 (10:02→18:00)
[2016-06-19] MEDS: GABAPENTIN 400 MG CAP PO SCH ×2 (10:02→20:44)
[2016-06-19] MEDS: predniSONE 5 MG TAB PO SCH (10:03)
[2016-06-19] MEDS: NICOTINE 21 MG/24 HR PATCH T-DERMAL SCH (10:03)
[2016-06-19] MEDS: LORazepam 2 MG TAB PO SCH ×2 (10:03→20:44)
[2016-06-19] MEDS: OLANZapine ODT 5 MG TAB PO SCH ×2 (10:03→20:45)
[2016-06-19] MEDS: MULTIVITAMINS/MINERALS THERAPEUTIC TAB PO SCH (10:03)
[2016-06-19 16:48] LABS: HEMOGLOBIN A1b 1.8 %; HEMOGLOBIN Ao 85.4 %; HEMOGLOBIN LA1C 1.8 %; HEMOGLOBIN P3 3.6 %
[2016-06-19 18:36] VITALS: BP 167/88; PULSE 107; RESP 16; TEMP 98.6; O2SAT 94
[2016-06-20 05:22] VITALS: BP 118/78; PULSE 83; RESP 16; TEMP 97.6; O2SAT 95
[2016-06-20] MEDS: RESP: ALBUTEROL 2.5 MG/IPRATROPIUM 0.5 MG NEB (SCH) NEB ×2 (08:00→19:30)
[2016-06-20] MEDS: REMOVE OLD PATCH T-DERMAL SCH (09:00)
[2016-06-20] MEDS: NICOTINE 21 MG/24 HR PATCH T-DERMAL SCH (09:00)
[2016-06-20] MEDS: predniSONE 5 MG TAB PO SCH (09:31)
[2016-06-20] MEDS: LORazepam 2 MG TAB PO SCH ×3 (09:31→21:00)
[2016-06-20] MEDS: ZIPRASIDONE HCL 80 MG CAP PO SCH ×2 (09:31→18:00)
[2016-06-20] MEDS: MULTIVITAMINS/MINERALS THERAPEUTIC TAB PO SCH (09:31)
[2016-06-20] MEDS: OLANZapine ODT 5 MG TAB PO SCH ×3 (09:31→21:00)
[2016-06-20] MEDS: GABAPENTIN 400 MG CAP PO SCH ×3 (09:31→21:00)
--- NOTE | 2016-06-20 14:55 | HHI.PYPN ---
Subjective Remarks Patient seen in [place] with nurse, chart reviewed, patient at this time is more angry and irritable, did recognize me and smile at me though now is refusing to be compliant with medications showing some increased paranoia at this time. For now continue medication treatment Review of Systems Except as stated in HPI: all other systems reviewed are Neg Objective Alert: Yes [place]: Person, Place, Situation Mood: Calm Affect: Labile, Restricted Memory Intact: Comment (poor) Hallucinations: Other (denies) Delusions: Yes Delusion Type: Paranoid (diminished today) Suicidal: Ideation (denies) Homicidal: Ideation (denies) Insight/Judgement Very poor Vitals/IOs Vital Signs Date Time Temp Pulse Resp B/P Pulse Ox O2 Delivery O2 Flow Rate FiO2 06/20/16 05:22 97.6 83 16 118/78 95 06/17/16 18:39 Room Air Intake and Output 06/19/16 06/19/16 06/20/16 08:00 16:00 00:00 Intake Total 120 ml 1080 ml 890 ml Balance 120 ml 1080 ml 890 ml Assessment & Plan Problem List: (1) Schizoaffective disorder ICD Code: F25.9 Assessment & Plan Estimated LOS: days patient continue somewhat manic, and psychotic, questionable compliance medication today Justification for Cont. Inpt. At this time patient would significantly decompensate if place to the lower level of care Discharge Planning To be determined Request HC Surrog/Guard Advoc?: Yes Problem Qualifiers (1) Schizoaffective disorder: Qualified Code: F25.0 - Schizoaffective disorder, bipolar type Brad Stern MD Jun 20, 2016 14:55
[2016-06-20 20:00] VITALS: BP 147/78; PULSE 76; RESP 16; TEMP 98.1
[2016-06-21 06:36] VITALS: BP 106/59; PULSE 82; RESP 17; TEMP 97.9; O2SAT 94
[2016-06-21] MEDS: RESP: ALBUTEROL 2.5 MG/IPRATROPIUM 0.5 MG NEB (SCH) NEB ×2 (07:59→19:25)
[2016-06-21] MEDS: MULTIVITAMINS/MINERALS THERAPEUTIC TAB PO SCH (09:00)
[2016-06-21] MEDS: GABAPENTIN 400 MG CAP PO SCH ×2 (09:00→21:00)
[2016-06-21] MEDS: predniSONE 5 MG TAB PO SCH (09:00)
[2016-06-21] MEDS: LORazepam 2 MG TAB PO SCH ×2 (09:00→21:00)
[2016-06-21] MEDS: OLANZapine ODT 5 MG TAB PO SCH ×2 (09:00→21:00)
[2016-06-21] MEDS: ZIPRASIDONE HCL 80 MG CAP PO SCH ×2 (09:00→18:00)
[2016-06-21] MEDS: REMOVE OLD PATCH T-DERMAL SCH (09:00)
[2016-06-21] MEDS: NICOTINE 21 MG/24 HR PATCH T-DERMAL SCH (09:43)
--- NOTE | 2016-06-21 14:39 | HHI.PR ---
Subjective Remarks Follow-up visit COPD. Patient seen today. States that she has "tick on her face" and that she is trying to get it off. Notable multiple skin wound opening and scars on her face and BUE. She has been refusing her nebulizer treatments according to nurses. Denies pain and discomfort. Denies SOB/ dyspnea. Denies chestpain, palpitations, headaches, dizziness. Denies fevers, chills, n/v/d. Objective Vitals Vital Signs Date Time Temp Pulse Resp B/P Pulse Ox O2 Delivery O2 Flow Rate FiO2 06/21/16 06:36 97.9 82 17 106/59 94 06/20/16 20:00 98.1 76 16 147/78 I/O 06/20/16 06/20/16 06/20/16 06/21/16 06/21/16 06/21/16 07:00 15:00 23:00 07:00 15:00 23:00 Intake Total 0 ml 0 ml 480 ml 0 ml Balance 0 ml 0 ml 480 ml 0 ml Intake Oral 0 ml 0 ml 480 ml 0 ml # Voids 0 1 1 2 Result Diagram: 06/17/16 1320 06/19/16 0646 Imaging Last Impressions Chest X-Ray 06/18/16 0000 Signed Impressions: Service Date/Time: Saturday, June 18, 2016 16:43 - CONCLUSION: No acute disease. Brad Tucker MD Objective Remarks GENERAL: This is a well-nourished, well-developed patient, in no apparent distress. SKIN: Multiple facial wounds somewhat healing, some are scabbed. wounds are also present in BUE HEAD: Atraumatic. Normocephalic. EYES: Pupils equal round and reactive. No injection or drainage. ENT: Nose without bleeding. Throat without erythema. Airway patent. NECK: Trachea midline. No JVD or lymphadenopathy. CARDIOVASCULAR: Regular rate and rhythm without murmurs, gallops, or rubs. RESPIRATORY: Moderate air exchange. No wheezing, no crackles. No accessory muscle use GASTROINTESTINAL: Abdomen soft, non-tender, nondistended. Bowel sounds active 4 MUSCULOSKELETAL: Extremities without clubbing, cyanosis, or edema. NEUROLOGICAL: Awake and alert. Confused. Motor and sensory grossly within normal limits. Normal speech. A/P Problem List: (1) Schizoaffective disorder ICD Code: F25.9 Status: Acute (2) COPD (chronic obstructive pulmonary disease) with emphysema ICD Code: J43.9 Status: Acute Assessment and Plan Patient is a 70-year-old white female who came in to the hospital under Pinon act by her medical doctor. Admitted to inpatient psychiatric unit for further evaluation. Consulted for medical management. Patient was last admission 2015 status post fall with left hip fracture, status post left bipolar hemiarthroplasty done by Dr. Arias. During the time of her hospitalization she developed respiratory failure, weaned off O2 and was discharged home. Schizophrenia - managed by psychiatry team COPD - continue home meds prednisone 5 mg daily - DuoNeb sched and when necessary - Chest x-ray no acute disease. Tobacco use - counseled. Nicotine patch. Skin lesions, wound - patient picks on her skin secondary to psychosis. Monitor for signs and symptoms of infection. - Bacitracin qhs - Benadryl PRN CBC and BMP unremarkable, UA negative DVT prop early ambulation Problem Qualifiers (1) Schizoaffective disorder: Qualified Code: F25.0 - Schizoaffective disorder, bipolar type Layla Friedman Jun 21, 2016 2:39 pm
--- NOTE | 2016-06-21 18:39 | HHI.PYPN ---
Subjective Remarks Pt seen and discussed with staff. Pt states that she is discharged from the hospital and does not need to talk to the doctor. She continues to refuse medications and continues with disorganized behaviors. Objective Alert: Yes [place]: Person, Place, Situation Mood: Calm Affect: Labile, Restricted Memory Intact: Comment (poor) Hallucinations: Other (denies) Delusions: Yes Delusion Type: Paranoid (diminished today) Suicidal: Ideation (denies) Homicidal: Ideation (denies) Insight/Judgement poor Vitals/IOs Vital Signs Date Time Temp Pulse Resp B/P Pulse Ox O2 Delivery O2 Flow Rate FiO2 06/21/16 06:36 97.9 82 17 106/59 94 06/17/16 18:39 Room Air Intake and Output 06/20/16 06/20/16 06/21/16 08:00 16:00 00:00 Intake Total 0 ml 0 ml 480 ml Balance 0 ml 0 ml 480 ml Assessment & Plan Problem List: (1) Schizoaffective disorder ICD Code: F25.9 Assessment & Plan Continue current tx plan and to encourage compliance. Estimated LOS: days Justification for Cont. Inpt. impairment in reality construction posing danger of decompensation and risk of neglect Request HC Surrog/Guard Advoc?: Yes Problem Qualifiers (1) Schizoaffective disorder: Qualified Code: F25.0 - Schizoaffective disorder, bipolar type Meghna Batista MD Jun 21, 2016 18:39
[2016-06-21 19:26] VITALS: BP 140/77; PULSE 116; RESP 17; TEMP 97.2; O2SAT 97
[2016-06-21] MEDS: BACITRACIN TOP OINT 15 GM TUBE TOP SCH (21:00)
[2016-06-22 05:33] VITALS: BP 112/64; PULSE 88; RESP 19; TEMP 98.8; O2SAT 97
[2016-06-22] MEDS: RESP: ALBUTEROL 2.5 MG/IPRATROPIUM 0.5 MG NEB (SCH) NEB ×2 (07:30→18:57)
[2016-06-22] MEDS: OLANZapine ODT 5 MG TAB PO SCH ×2 (09:00→21:00)
[2016-06-22] MEDS: ZIPRASIDONE HCL 80 MG CAP PO SCH ×2 (09:00→17:45)
[2016-06-22] MEDS: predniSONE 5 MG TAB PO SCH (09:00)
[2016-06-22] MEDS: LORazepam 2 MG TAB PO SCH ×2 (09:00→21:00)
[2016-06-22] MEDS: GABAPENTIN 400 MG CAP PO SCH ×2 (09:00→21:00)
[2016-06-22] MEDS: MULTIVITAMINS/MINERALS THERAPEUTIC TAB PO SCH (09:00)
[2016-06-22] MEDS: REMOVE OLD PATCH T-DERMAL SCH (09:00)
[2016-06-22] MEDS: NICOTINE 21 MG/24 HR PATCH T-DERMAL SCH (09:20)
[2016-06-22] MEDS: LORazepam 2 MG/ML VIAL IM PRN ×2 (11:36→22:00)
--- NOTE | 2016-06-22 13:04 | HHI.PYPN ---
Subjective Remarks Pt seen and discussed with staff. She continues to refuse medication and has decompensated further. Pt is actively responding to internal stimuli and is easily agitated. She has been refusing to come out of room except for meals. No SI/HI Objective Alert: Yes [place]: Person, Place, Situation Mood: Agitated Affect: Labile Memory Intact: Comment (poor) Hallucinations: Auditory Delusions: Yes Delusion Type: Paranoid Suicidal: Ideation (denies) Homicidal: Ideation (denies) Insight/Judgement poor Vitals/IOs Vital Signs Date Time Temp Pulse Resp B/P Pulse Ox O2 Delivery O2 Flow Rate FiO2 06/22/16 05:33 98.8 88 19 112/64 97 Intake and Output 06/21/16 06/21/16 06/21/16 07:59 15:59 23:59 Intake Total 0 ml 0 ml Balance 0 ml 0 ml Assessment & Plan Problem List: (1) Schizoaffective disorder ICD Code: F25.9 Assessment & Plan continue current tx plan. Continue to encourage compliance. Estimated LOS: days Justification for Cont. Inpt. impairments in reality construction Request HC Surrog/Guard Advoc?: Yes Problem Qualifiers (1) Schizoaffective disorder: Qualified Code: F25.0 - Schizoaffective disorder, bipolar type Meghna Batista MD Jun 22, 2016 13:04
[2016-06-22 18:38] VITALS: BP 132/101; PULSE 125; RESP 17; TEMP 98.2; O2SAT 99
[2016-06-22] MEDS: BACITRACIN TOP OINT 15 GM TUBE TOP SCH (21:00)
[2016-06-23 06:42] VITALS: BP 127/85; PULSE 117; RESP 18; TEMP 98; O2SAT 98
[2016-06-23] MEDS: LORazepam 2 MG TAB PO SCH ×2 (09:00→21:00)
[2016-06-23] MEDS: REMOVE OLD PATCH T-DERMAL SCH (09:00)
[2016-06-23] MEDS: ZIPRASIDONE HCL 80 MG CAP PO SCH ×2 (09:00→18:09)
[2016-06-23] MEDS: predniSONE 5 MG TAB PO SCH (09:00)
[2016-06-23] MEDS: GABAPENTIN 400 MG CAP PO SCH ×2 (09:00→21:00)
[2016-06-23] MEDS: MULTIVITAMINS/MINERALS THERAPEUTIC TAB PO SCH (09:00)
[2016-06-23] MEDS: OLANZapine ODT 5 MG TAB PO SCH ×2 (09:00→21:30)
[2016-06-23] MEDS: NICOTINE 21 MG/24 HR PATCH T-DERMAL SCH (09:00)
--- NOTE | 2016-06-23 14:10 | HHI.PYPN ---
Subjective Remarks Patient discussed with treatment team, chart reviewed, patient seen on unit. Patient becoming more irritable labile intrusive profane and noncompliant with medication. Will add Geodon 10 mg IM twice a day after meals to be given if she refuses the oral dose of Geodon Review of Systems Except as stated in HPI: all other systems reviewed are Neg Objective Alert: Yes [place]: Person, Place, Situation Mood: Agitated Affect: Labile Memory Intact: Comment (poor) Hallucinations: Auditory Delusions: Yes Delusion Type: Paranoid Suicidal: Ideation (denies) Homicidal: Ideation (denies) Insight/Judgement Very poor Vitals/IOs Vital Signs Date Time Temp Pulse Resp B/P Pulse Ox O2 Delivery O2 Flow Rate FiO2 06/23/16 06:42 98.0 117 18 127/85 98 Intake and Output 06/22/16 06/22/16 06/23/16 08:00 16:00 00:00 Intake Total 0 ml 560 ml Balance 0 ml 560 ml Assessment & Plan Problem List: (1) Schizoaffective disorder ICD Code: F25.9 Assessment & Plan Estimated LOS: days patient showing increased manic behavior with psychotic features, intrusive, not compliant medications. Please see med adjustment above Justification for Cont. Inpt. At this time patient was significantly decompensated if placed in a lower level of care Discharge Planning To be determined Request HC Surrog/Guard Advoc?: Yes Problem Qualifiers (1) Schizoaffective disorder: Qualified Code: F25.0 - Schizoaffective disorder, bipolar type Brad Stern MD Jun 23, 2016 14:10
--- NOTE | 2016-06-23 14:32 | HHI.PR ---
Subjective Remarks Follow-up visit COPD. Patient seen today. States she takes her nebulizer treatments. Denies shortness of breath/dyspnea. Denies any other complaints. Denies pain, chest pain, palpitations, headaches, dizziness. Denies fevers, chills, n/v/d. Objective Vitals Vital Signs Date Time Temp Pulse Resp B/P Pulse Ox O2 Delivery O2 Flow Rate FiO2 06/23/16 06:42 98.0 117 18 127/85 98 06/22/16 18:38 98.2 125 17 132/101 99 I/O 06/22/16 06/22/16 06/22/16 06/23/16 06/23/16 06/23/16 07:00 15:00 23:00 07:00 15:00 23:00 Intake Total 0 ml 560 ml 240 ml Balance 0 ml 560 ml 240 ml Intake Oral 0 ml 560 ml 240 ml # Voids 2 Result Diagram: 06/19/16 0646 Imaging Last Impressions Chest X-Ray 06/18/16 0000 Signed Impressions: Service Date/Time: Saturday, June 18, 2016 16:43 - CONCLUSION: No acute disease. Brad Tucker MD Objective Remarks GENERAL: This is a well-nourished, well-developed patient, in no apparent distress. SKIN: Multiple facial wounds somewhat healing, some are scabbed. wounds are also present in BUE HEAD: Atraumatic. Normocephalic. EYES: Pupils equal round and reactive. No injection or drainage. ENT: Nose without bleeding. Throat without erythema. Airway patent. NECK: Trachea midline. No JVD or lymphadenopathy. CARDIOVASCULAR: Regular rate and rhythm without murmurs, gallops, or rubs. RESPIRATORY: Moderate air exchange. No wheezing, no crackles. No accessory muscle use. Clear upper lobes. GASTROINTESTINAL: Abdomen soft, non-tender, nondistended. Bowel sounds active 4 MUSCULOSKELETAL: Extremities without clubbing, cyanosis, or edema. NEUROLOGICAL: Awake and alert. Confused. Motor and sensory grossly within normal limits. Normal speech. A/P Problem List: (1) Schizoaffective disorder ICD Code: F25.9 Status: Acute (2) COPD (chronic obstructive pulmonary disease) with emphysema ICD Code: J43.9 Status: Acute Assessment and Plan Patient is a 70-year-old white female who came in to the hospital under [place] by her medical doctor. Admitted to inpatient psychiatric unit for further evaluation. Consulted for medical management. Patient was last admission 2015 status post fall with left hip fracture, status post left bipolar hemiarthroplasty done by Dr. Arias. During the time of her hospitalization she developed respiratory failure, weaned off O2 and was discharged home. Schizophrenia - managed by psychiatry team COPD - continue home meds prednisone 5 mg daily - DuoNeb sched and when necessary - Chest x-ray no acute disease. Tobacco use - counseled. Nicotine patch. Skin lesions, wound - patient picks on her skin secondary to psychosis. Monitor for signs and symptoms of infection. - Bacitracin qhs - Benadryl PRN CBC and BMP unremarkable, UA negative DVT prop early ambulation Discussed with patient, RN Stable from Hospitalist standpoint. We will sign off. Reconsult as needed. Written by Layla Oneal, acting as scribe for Dr. Estrada on 06/23/16 at 14: 31. Attending Statement The documentation accurately reflects the work performed [id number] by me on at 14:31. Problem Qualifiers (1) Schizoaffective disorder: Qualified Code: F25.0 - Schizoaffective disorder, bipolar type Layla Friedman Jun 23, 2016 14:32 Jimmy Marr MD Jul 03, 2016 02:02
[2016-06-23] MEDS: ZIPRASIDONE MESYLATE 20 MG VIAL IM SCH (18:00)
[2016-06-23 18:37] VITALS: BP 125/81; PULSE 102; RESP 18; TEMP 97.9; O2SAT 97
[2016-06-23] MEDS: BACITRACIN TOP OINT 15 GM TUBE TOP SCH (20:57)
[2016-06-24 05:29] VITALS: BP 116/68; PULSE 81; RESP 18; TEMP 97.5; O2SAT 96
[2016-06-24] MEDS: LORazepam 2 MG TAB PO SCH ×2 (08:47→21:00)
[2016-06-24] MEDS: NICOTINE 21 MG/24 HR PATCH T-DERMAL SCH (08:47)
[2016-06-24] MEDS: GABAPENTIN 400 MG CAP PO SCH ×2 (09:00→21:00)
[2016-06-24] MEDS: ZIPRASIDONE HCL 80 MG CAP PO SCH ×2 (09:00→18:00)
[2016-06-24] MEDS: REMOVE OLD PATCH T-DERMAL SCH (09:00)
[2016-06-24] MEDS: predniSONE 5 MG TAB PO SCH (09:00)
[2016-06-24] MEDS: MULTIVITAMINS/MINERALS THERAPEUTIC TAB PO SCH (09:00)
[2016-06-24] MEDS: ZIPRASIDONE MESYLATE 20 MG VIAL IM SCH ×2 (09:06→17:56)
[2016-06-24] MEDS: OLANZapine ODT 5 MG TAB PO SCH ×2 (09:16→21:15)
--- NOTE | 2016-06-24 10:40 | HHI.PYPN ---
Subjective Remarks Patient seen in dayroom the floor staff, chart reviewed, patient continues noncompliant with medication needing IM Geodon this a.m. Patient continues loud confusing irritable and intrusive Review of Systems Except as stated in HPI: all other systems reviewed are Neg Objective Alert: Yes [place]: Person, Place, Situation Mood: Agitated Affect: Labile Memory Intact: Comment (poor) Hallucinations: Auditory Delusions: Yes Delusion Type: Paranoid Suicidal: Ideation (denies) Homicidal: Ideation (denies) Insight/Judgement Very poor Vitals/IOs Vital Signs Date Time Temp Pulse Resp B/P Pulse Ox O2 Delivery O2 Flow Rate FiO2 06/24/16 05:29 97.5 81 18 116/68 96 Intake and Output 06/23/16 06/23/16 06/24/16 08:00 16:00 00:00 Intake Total 840 ml 720 ml Balance 840 ml 720 ml Assessment & Plan Problem List: (1) Schizoaffective disorder ICD Code: F25.9 Assessment & Plan Estimated LOS: days patient continues loud manic psychotic, not compliant medications. For now continue treatment Justification for Cont. Inpt. At this time patient would significantly decompensate if placed in a lower level of care Discharge Planning To be determined Request HC Surrog/Guard Advoc?: Yes Problem Qualifiers (1) Schizoaffective disorder: Qualified Code: F25.0 - Schizoaffective disorder, bipolar type Brad Stern MD Jun 24, 2016 10:40
[2016-06-24 19:46] VITALS: BP 123/80; PULSE 105; RESP 18; TEMP 98.5; O2SAT 100
[2016-06-24] MEDS: BACITRACIN TOP OINT 15 GM TUBE TOP SCH (21:14)
[2016-06-25 05:28] VITALS: BP 102/56; PULSE 86; RESP 17; TEMP 97.6
[2016-06-25] MEDS: GABAPENTIN 400 MG CAP PO SCH ×2 (09:00→21:00)
[2016-06-25] MEDS: REMOVE OLD PATCH T-DERMAL SCH (09:00)
[2016-06-25] MEDS: ZIPRASIDONE HCL 80 MG CAP PO SCH ×2 (09:00→18:00)
[2016-06-25] MEDS: predniSONE 5 MG TAB PO SCH (09:00)
[2016-06-25] MEDS: LORazepam 2 MG TAB PO SCH ×2 (09:00→21:00)
[2016-06-25] MEDS: MULTIVITAMINS/MINERALS THERAPEUTIC TAB PO SCH (09:00)
[2016-06-25] MEDS: OLANZapine ODT 5 MG TAB PO SCH (09:21)
[2016-06-25] MEDS: ZIPRASIDONE MESYLATE 20 MG VIAL IM SCH ×2 (09:49→18:04)
[2016-06-25] MEDS: NICOTINE 21 MG/24 HR PATCH T-DERMAL SCH (09:58)
--- NOTE | 2016-06-25 09:59 | HHI.PYPN ---
Subjective Remarks Patient seen in her room with nurse Alexandra, patient bed covers to the chin. Patient irritable with me, responses are brief and angry. Markedly disorganized. Continues to refuse her Zyprexa will discontinue that continue with the Geodon either by mouth or IM. Patient scheduled for [place] [facility] tomorrow Review of Systems Except as stated in HPI: all other systems reviewed are Neg Objective Alert: Yes [place]: Person, Place, Situation Mood: Agitated Affect: Labile Memory Intact: Comment (poor) Hallucinations: Auditory Delusions: Yes Delusion Type: Paranoid Suicidal: Ideation (denies) Homicidal: Ideation (denies) Insight/Judgement Very poor Vitals/IOs Vital Signs Date Time Temp Pulse Resp B/P Pulse Ox O2 Delivery O2 Flow Rate FiO2 06/25/16 05:28 97.6 86 17 102/56 06/24/16 19:46 100 Intake and Output 06/24/16 06/24/16 06/25/16 08:00 16:00 00:00 Intake Total 840 ml Balance 840 ml Assessment & Plan Problem List: (1) Schizoaffective disorder ICD Code: F25.9 Assessment & Plan Estimated LOS: days patient continues confused disoriented hypomanic. See medication changes above Justification for Cont. Inpt. At this time patient would seriously decompensate if placed a lower level of care Discharge Planning To be determined Request HC Surrog/Guard Advoc?: Yes Problem Qualifiers (1) Schizoaffective disorder: Qualified Code: F25.0 - Schizoaffective disorder, bipolar type Brad Stern MD Jun 25, 2016 09:59
[2016-06-25] MEDS: LORazepam 2 MG/ML VIAL IM PRN (17:12)
[2016-06-25] MEDS: BACITRACIN TOP OINT 15 GM TUBE TOP SCH (21:00)
[2016-06-26] MEDS: diphenhydrAMINE HCL 50 MG CAP PO PRN ×2 (01:05→01:20)
[2016-06-26] MEDS: diphenhydrAMINE HCL 50 MG/ML VIAL IM PRN (01:17)
[2016-06-26 06:31] VITALS: BP 115/73; PULSE 64; RESP 16; O2SAT 96
[2016-06-26] MEDS: predniSONE 5 MG TAB PO SCH (09:00)
[2016-06-26] MEDS: NICOTINE 21 MG/24 HR PATCH T-DERMAL SCH (09:00)
[2016-06-26] MEDS: ZIPRASIDONE HCL 80 MG CAP PO SCH ×2 (09:00→17:34)
[2016-06-26] MEDS: GABAPENTIN 400 MG CAP PO SCH ×2 (09:00→21:00)
[2016-06-26] MEDS: LORazepam 2 MG TAB PO SCH ×2 (09:00→21:00)
[2016-06-26] MEDS: REMOVE OLD PATCH T-DERMAL SCH (09:00)
[2016-06-26] MEDS: MULTIVITAMINS/MINERALS THERAPEUTIC TAB PO SCH (09:00)
[2016-06-26] MEDS: ZIPRASIDONE MESYLATE 20 MG VIAL IM SCH ×2 (10:22→18:33)
--- NOTE | 2016-06-26 12:06 | HHI.PYPN ---
Subjective Remarks Patient seen in [place] retained by Sonoscope Operator Martin nominated be guardian advocate. Patient continues loud delusional confused patient continues to refuse all medication necessitating the use of IM Geodon Review of Systems Except as stated in HPI: all other systems reviewed are Neg Objective Alert: Yes [place]: Person, Place, Situation Mood: Agitated Affect: Labile Memory Intact: Comment (poor) Hallucinations: Auditory Delusions: Yes Delusion Type: Paranoid Suicidal: Ideation (denies) Homicidal: Ideation (denies) Insight/Judgement Very poor Vitals/IOs Vital Signs Date Time Temp Pulse Resp B/P Pulse Ox O2 Delivery O2 Flow Rate FiO2 06/26/16 06:31 64 16 115/73 96 06/25/16 05:28 97.6 Intake and Output 06/25/16 06/25/16 06/26/16 08:00 16:00 00:00 Intake Total 960 ml 0 ml Balance 960 ml 0 ml Assessment & Plan Problem List: (1) Schizoaffective disorder ICD Code: F25.9 Assessment & Plan Estimated LOS: days patient continues psychotic loud intrusive Justification for Cont. Inpt. At this time patient was severely decompensate if placed on the lower level of care Discharge Planning To be determined Request HC Surrog/Guard Advoc?: Yes Problem Qualifiers (1) Schizoaffective disorder: Qualified Code: F25.0 - Schizoaffective disorder, bipolar type Brad Stern MD Jun 26, 2016 12:06
[2016-06-26 19:25] VITALS: BP 164/90; PULSE 84; RESP 18; TEMP 98.4; O2SAT 96
[2016-06-26] MEDS: BACITRACIN TOP OINT 15 GM TUBE TOP SCH (21:00)
[2016-06-27 06:00] VITALS: BP 118/63; PULSE 108; RESP 16; TEMP 98.1; O2SAT 95
[2016-06-27] MEDS: LORazepam 2 MG TAB PO SCH ×2 (08:58→21:00)
[2016-06-27] MEDS: ZIPRASIDONE MESYLATE 20 MG VIAL IM SCH ×3 (08:58→19:29)
[2016-06-27] MEDS: GABAPENTIN 400 MG CAP PO SCH ×2 (08:59→21:00)
[2016-06-27] MEDS: ZIPRASIDONE HCL 80 MG CAP PO SCH ×2 (08:59→18:00)
[2016-06-27] MEDS: REMOVE OLD PATCH T-DERMAL SCH (08:59)
[2016-06-27] MEDS: predniSONE 5 MG TAB PO SCH (08:59)
[2016-06-27] MEDS: MULTIVITAMINS/MINERALS THERAPEUTIC TAB PO SCH (09:00)
[2016-06-27] MEDS: NICOTINE 21 MG/24 HR PATCH T-DERMAL SCH (09:00)
--- NOTE | 2016-06-27 11:53 | HHI.PYPN ---
Subjective Remarks Patient seen in day room with nurse Paty and medical studentmarlon , patient continues markedly disorganized tangential circumstantial almost lupoid toward salad. She continues to deny need of medication today stating that we are all in [place]. Continue medication treatment no change at this time Review of Systems Except as stated in HPI: all other systems reviewed are Neg Objective Alert: Yes [place]: Person, Place, Situation Mood: Agitated Affect: Labile Memory Intact: Comment (poor) Hallucinations: Auditory Delusions: Yes Delusion Type: Paranoid Suicidal: Ideation (denies) Homicidal: Ideation (denies) Insight/Judgement Very poor Vitals/IOs Vital Signs Date Time Temp Pulse Resp B/P Pulse Ox O2 Delivery O2 Flow Rate FiO2 06/27/16 06:00 98.1 108 16 118/63 95 Intake and Output 06/26/16 06/26/16 06/27/16 08:00 16:00 00:00 Intake Total 240 ml 720 ml Balance 240 ml 720 ml Assessment & Plan Problem List: (1) Schizoaffective disorder ICD Code: F25.9 Assessment & Plan Estimated LOS: days patient continues psychotic delusional intrusive noncompliant medications. Continues to take IM Geodon Justification for Cont. Inpt. At this time patient would significantly decompensated if placed in a lower level of care Discharge Planning To be determined Request HC Surrog/Guard Advoc?: Yes Problem Qualifiers (1) Schizoaffective disorder: Qualified Code: F25.0 - Schizoaffective disorder, bipolar type Brad Stern MD Jun 27, 2016 11:53
[2016-06-27 19:32] VITALS: BP 118/56; PULSE 77; RESP 16
[2016-06-27] MEDS: BACITRACIN TOP OINT 15 GM TUBE TOP SCH (21:00)
[2016-06-28 06:10] VITALS: BP 96/59; PULSE 62; RESP 17; TEMP 97.9; O2SAT 97
[2016-06-28] MEDS: ZIPRASIDONE MESYLATE 20 MG VIAL IM SCH (09:00)
[2016-06-28] MEDS: REMOVE OLD PATCH T-DERMAL SCH (09:00)
[2016-06-28] MEDS: NICOTINE 21 MG/24 HR PATCH T-DERMAL SCH (09:00)
[2016-06-28] MEDS: ZIPRASIDONE HCL 80 MG CAP PO SCH ×2 (10:51→18:45)
[2016-06-28] MEDS: LORazepam 2 MG TAB PO SCH ×2 (10:51→21:00)
[2016-06-28] MEDS: GABAPENTIN 400 MG CAP PO SCH ×2 (10:51→21:00)
[2016-06-28] MEDS: MULTIVITAMINS/MINERALS THERAPEUTIC TAB PO SCH (10:51)
[2016-06-28] MEDS: predniSONE 5 MG TAB PO SCH (10:51)
--- NOTE | 2016-06-28 12:37 | HHI.PYPN ---
Subjective Remarks Patient was seen and case discussed with nursing. Patient is hyperverbal, oriented 1, grossly confused. Told nursing earlier that her dad was sitting next to her. Compliant with her medications. Behaving well on the unit Objective Alert: Yes [place]: Person, Place, Situation Mood: Agitated Affect: Labile Memory Intact: Comment (poor) Hallucinations: Auditory Delusions: Yes Delusion Type: Paranoid Suicidal: Ideation (denies) Homicidal: Ideation (denies) Insight/Judgement Poor Vitals/IOs Vital Signs Date Time Temp Pulse Resp B/P Pulse Ox O2 Delivery O2 Flow Rate FiO2 06/28/16 06:10 97.9 62 17 96/59 97 Intake and Output 06/27/16 06/27/16 06/28/16 08:00 16:00 00:00 Intake Total 120 ml Balance 120 ml Assessment & Plan Problem List: (1) Schizoaffective disorder ICD Code: F25.9 Assessment & Plan Estimated LOS: days Justification for Cont. Inpt. Patient will decompensate in a less restrictive setting Request HC Surrog/Guard Advoc?: Yes Problem Qualifiers (1) Schizoaffective disorder: Qualified Code: F25.0 - Schizoaffective disorder, bipolar type Jerson Sanchez DO Jun 28, 2016 12:37
[2016-06-28 18:00] VITALS: BP 143/88; PULSE 93; RESP 17; TEMP 98; O2SAT 98
[2016-06-28] MEDS: BACITRACIN TOP OINT 15 GM TUBE TOP SCH (22:01)
[2016-06-29 05:51] VITALS: PULSE 83; RESP 20; TEMP 98.1; O2SAT 97
[2016-06-29] MEDS: ZIPRASIDONE MESYLATE 20 MG VIAL IM SCH ×2 (08:59→17:39)
[2016-06-29] MEDS: LORazepam 2 MG TAB PO SCH ×2 (08:59→21:00)
[2016-06-29] MEDS: REMOVE OLD PATCH T-DERMAL SCH (09:00)
[2016-06-29] MEDS: predniSONE 5 MG TAB PO SCH (09:00)
[2016-06-29] MEDS: GABAPENTIN 400 MG CAP PO SCH ×2 (09:00→21:00)
[2016-06-29] MEDS: ZIPRASIDONE HCL 80 MG CAP PO SCH ×2 (09:00→17:39)
[2016-06-29] MEDS: NICOTINE 21 MG/24 HR PATCH T-DERMAL SCH (09:00)
[2016-06-29] MEDS: MULTIVITAMINS/MINERALS THERAPEUTIC TAB PO SCH (09:00)
--- NOTE | 2016-06-29 12:32 | HHI.PYPN ---
Subjective Remarks Patient was seen and case discussed with nursing. Patient is spending the day in bed. She is alert and oriented 1. Grossly confused. She is behaving well and compliant with her medications. Denies auditory visual hallucinations told staff yesterday she felt father sitting next to her Objective Alert: Yes [place]: Person, Place, Situation Mood: Agitated Affect: Labile Memory Intact: Comment (poor) Hallucinations: Auditory Delusions: Yes Delusion Type: Paranoid Suicidal: Ideation (denies) Homicidal: Ideation (denies) Insight/Judgement Poor Vitals/IOs Vital Signs Date Time Temp Pulse Resp B/P Pulse Ox O2 Delivery O2 Flow Rate FiO2 06/29/16 05:51 98.1 83 20 97 06/28/16 18:00 143/88 Intake and Output 06/28/16 06/28/16 06/29/16 08:00 16:00 00:00 Intake Total 0 ml 360 ml Balance 0 ml 360 ml Assessment & Plan Problem List: (1) Schizoaffective disorder ICD Code: F25.9 Assessment & Plan Continue current treatment plan Justification for Cont. Inpt. Patient will decompensate in a less restrictive setting Request HC Surrog/Guard Advoc?: Yes Problem Qualifiers (1) Schizoaffective disorder: Qualified Code: F25.0 - Schizoaffective disorder, bipolar type Jerson [place] DO Jun 29, 2016 12:32
[2016-06-29 18:00] VITALS: BP 123/59; PULSE 81; RESP 18; O2SAT 97
[2016-06-29] MEDS: BACITRACIN TOP OINT 15 GM TUBE TOP SCH (21:45)
[2016-06-30] MEDS: diphenhydrAMINE HCL 50 MG/ML VIAL IM PRN (00:09)
[2016-06-30 05:43] VITALS: BP 118/59; PULSE 77; RESP 16; O2SAT 93
[2016-06-30] MEDS: LORazepam 2 MG TAB PO SCH ×2 (08:54→20:58)
[2016-06-30] MEDS: ZIPRASIDONE HCL 80 MG CAP PO SCH ×2 (08:55→17:23)
[2016-06-30] MEDS: predniSONE 5 MG TAB PO SCH (08:55)
[2016-06-30] MEDS: GABAPENTIN 400 MG CAP PO SCH ×2 (08:55→20:58)
[2016-06-30] MEDS: NICOTINE 21 MG/24 HR PATCH T-DERMAL SCH (08:55)
[2016-06-30] MEDS: MULTIVITAMINS/MINERALS THERAPEUTIC TAB PO SCH (08:56)
[2016-06-30] MEDS: ZIPRASIDONE MESYLATE 20 MG VIAL IM SCH ×2 (09:00→17:23)
[2016-06-30] MEDS: REMOVE OLD PATCH T-DERMAL SCH (09:00)
[2016-06-30] MEDS: LORazepam 2 MG/ML VIAL IM PRN (10:06)
--- NOTE | 2016-06-30 15:26 | HHI.PYPN ---
Subjective Remarks Patient discussed with treatment team medical student Nissa, chart review, patient seen on unit. Patient remains markedly confused and disoriented, continues to isolate, although no other behavioral problems, compliant medications. Review of Systems Except as stated in HPI: all other systems reviewed are Neg Objective Alert: Yes [place]: Person, Place, Situation Mood: Agitated Affect: Labile Memory Intact: Comment (poor) Hallucinations: Auditory Delusions: Yes Delusion Type: Paranoid Suicidal: Ideation (denies) Homicidal: Ideation (denies) Insight/Judgement Very poor Vitals/IOs Vital Signs Date Time Temp Pulse Resp B/P Pulse Ox O2 Delivery O2 Flow Rate FiO2 06/30/16 05:43 77 16 118/59 93 06/29/16 05:51 98.1 Intake and Output 06/29/16 06/29/16 06/30/16 08:00 16:00 00:00 Intake Total 0 ml 240 ml 360 ml Balance 0 ml 240 ml 360 ml Assessment & Plan Problem List: (1) Schizoaffective disorder ICD Code: F25.9 Assessment & Plan Estimated LOS: days patient remains confused with increased isolation though compliant medications Justification for Cont. Inpt. At this time patient would significantly decompensated placed in a lower level of care Discharge Planning To be determined Request HC Surrog/Guard Advoc?: Yes Problem Qualifiers (1) Schizoaffective disorder: Qualified Code: F25.0 - Schizoaffective disorder, bipolar type Brad Stern MD Jun 30, 2016 15:26
[2016-06-30] MEDS: diphenhydrAMINE HCL 50 MG CAP PO PRN (17:24)
[2016-06-30] MEDS: BACITRACIN TOP OINT 15 GM TUBE TOP SCH (20:58)
[2016-07-01 06:29] VITALS: BP 122/69; PULSE 91; RESP 18; TEMP 96.7; O2SAT 99
[2016-07-01] MEDS: REMOVE OLD PATCH T-DERMAL SCH (09:00)
[2016-07-01] MEDS: MULTIVITAMINS/MINERALS THERAPEUTIC TAB PO SCH (09:00)
[2016-07-01] MEDS: LORazepam 2 MG TAB PO SCH ×2 (09:00→20:47)
[2016-07-01] MEDS: NICOTINE 21 MG/24 HR PATCH T-DERMAL SCH (09:00)
[2016-07-01] MEDS: GABAPENTIN 400 MG CAP PO SCH ×2 (09:00→21:00)
[2016-07-01] MEDS: predniSONE 5 MG TAB PO SCH (09:00)
[2016-07-01] MEDS: ZIPRASIDONE HCL 80 MG CAP PO SCH (09:00)
[2016-07-01] MEDS: ZIPRASIDONE MESYLATE 20 MG VIAL IM SCH (10:00)
[2016-07-01] MEDS: diphenhydrAMINE HCL 50 MG/ML VIAL IM PRN (10:10)
--- NOTE | 2016-07-01 14:09 | HHI.PYPN ---
Subjective Remarks Patient seen in room with floor staff, chart reviewed, patient continues loud irritable somewhat confused noncompliant with medications. Will increase oral Geodon to 80 mg a.m. 120 mg at bedtime, increase IM Geodon to 15 mg twice a day if patient refuses oral Geodon Review of Systems Except as stated in HPI: all other systems reviewed are Neg Objective Alert: Yes [place]: Person, Place, Situation Mood: Agitated Affect: Labile Memory Intact: Comment (poor) Hallucinations: Auditory Delusions: Yes Delusion Type: Paranoid Suicidal: Ideation (denies) Homicidal: Ideation (denies) Insight/Judgement Very poor Vitals/IOs Vital Signs Date Time Temp Pulse Resp B/P Pulse Ox O2 Delivery O2 Flow Rate FiO2 07/01/16 06:29 96.7 91 18 122/69 99 Intake and Output 06/30/16 06/30/16 07/01/16 08:00 16:00 00:00 Intake Total 240 ml 840 ml 1200 ml Balance 240 ml 840 ml 1200 ml Assessment & Plan Problem List: (1) Schizoaffective disorder ICD Code: F25.9 Assessment & Plan Estimated LOS: days patient continues confused psychotic noncompliant medication placement medication adjustments above Justification for Cont. Inpt. At this time patient would severely decompensate if place to the lower level of care Discharge Planning To be determined Request HC Surrog/Guard Advoc?: Yes Problem Qualifiers (1) Schizoaffective disorder: Qualified Code: F25.0 - Schizoaffective disorder, bipolar type Brad Stern MD Jul 01, 2016 14:09
[2016-07-01] MEDS ORDERED: ZIPRASIDONE MESYLATE 20 MG VIAL IM SCH (18:00)
[2016-07-01 19:28] VITALS: BP 142/102; PULSE 111; RESP 18
[2016-07-01] MEDS: ZIPRASIDONE HCL 60 MG CAP PO SCH (20:45)
[2016-07-01] MEDS: BACITRACIN TOP OINT 15 GM TUBE TOP SCH (21:00)
[2016-07-02 06:02] VITALS: BP 144/93; PULSE 94; RESP 16; TEMP 98.5
--- NOTE | 2016-07-02 08:30 | HHI.PYPN ---
Subjective Remarks Patient seen in her room with nurse Les, chart review, patient sitting quietly in her bed she continues markedly disorganized confused stating today that she is waiting for her dad so that he can take her home so they could live together and [place], patient continues with mixed compliance with medication. Her affect has softened she continues he showed no significant insight into her disease. Review of Systems Except as stated in HPI: all other systems reviewed are Neg Objective Alert: Yes [place]: Person, Place, Situation Mood: Agitated (less today) Affect: Labile (less today) Memory Intact: Comment (poor) Hallucinations: Auditory Delusions: Yes Delusion Type: Paranoid Suicidal: Ideation (denies) Homicidal: Ideation (denies) Insight/Judgement Very poor Vitals/IOs Vital Signs Date Time Temp Pulse Resp B/P Pulse Ox O2 Delivery O2 Flow Rate FiO2 07/02/16 06:02 98.5 94 16 144/93 07/01/16 06:29 99 Intake and Output 07/01/16 07/01/16 07/02/16 08:00 16:00 00:00 Intake Total 720 ml 120 ml Balance 720 ml 120 ml Assessment & Plan Problem List: (1) Schizoaffective disorder ICD Code: F25.9 Assessment & Plan Estimated LOS: days patient continues psychotic delusional though with a softer affect calmer less behavioral issues. Her medication compliant continues to remain mixed. For now continue treatment Justification for Cont. Inpt. At this time patient would severely decompensate if placed on the lower level of care Discharge Planning To be determined Request HC Surrog/Guard Advoc?: Yes Problem Qualifiers (1) Schizoaffective disorder: Qualified Code: F25.0 - Schizoaffective disorder, bipolar type Brad Stern MD Jul 02, 2016 08:30
[2016-07-02] MEDS: REMOVE OLD PATCH T-DERMAL SCH (09:00)
[2016-07-02] MEDS: NICOTINE 21 MG/24 HR PATCH T-DERMAL SCH (09:00)
[2016-07-02] MEDS: MULTIVITAMINS/MINERALS THERAPEUTIC TAB PO SCH (09:00)
[2016-07-02] MEDS: LORazepam 2 MG TAB PO SCH ×2 (10:10→21:00)
[2016-07-02] MEDS: predniSONE 5 MG TAB PO SCH (10:10)
[2016-07-02] MEDS: GABAPENTIN 400 MG CAP PO SCH ×2 (10:11→21:00)
[2016-07-02] MEDS: ZIPRASIDONE HCL 80 MG CAP PO SCH (10:11)
[2016-07-02 13:05] VITALS: BP 153/82; PULSE 116; RESP 18; TEMP 98.1; O2SAT 98
[2016-07-02 14:10] VITALS: BP 165/68; PULSE 97; RESP 18; TEMP 98.3; O2SAT 95
--- NOTE | 2016-07-02 16:19 | RADRPT ---
EXAM DATE/TIME: 07/02/2016 16:10 [facility] COMPARISON: No previous studies available for comparison. INDICATIONS : Evaluate right hip for fractures. Patient fell this afternoon. MEDICAL HISTORY : Hypertension. SURGICAL HISTORY : Bilateral hip replacements. ENCOUNTER: Initial ACUITY: 1 day PAIN SCORE: 3/10 LOCATION: Right hip. FINDINGS: Bilateral hip arthroplasties are present. There is no evidence of acute fracture. Bony mineralization is normal. CONCLUSION: 1. There is no evidence of acute fracture. El Wilkins MD on July 02, 2016 at 16:17 Board Certified Radiologist. This report was verified electronically.
[2016-07-02 18:05] VITALS: BP 137/86; PULSE 104; RESP 18; TEMP 98.3; O2SAT 98
[2016-07-02] MEDS: ZIPRASIDONE MESYLATE 20 MG VIAL IM PRN (19:57)
[2016-07-02] MEDS: ZIPRASIDONE HCL 60 MG CAP PO SCH (21:00)
[2016-07-02] MEDS: BACITRACIN TOP OINT 15 GM TUBE TOP SCH (21:00)
[2016-07-02 22:00] VITALS: BP 109/59; PULSE 86; RESP 18; TEMP 99.7; O2SAT 98
[2016-07-03 02:05] VITALS: BP 103/58; PULSE 72; RESP 17; TEMP 97.4; O2SAT 95
[2016-07-03] MEDS: diphenhydrAMINE HCL 50 MG/ML VIAL IM PRN ×2 (08:37→18:00)
[2016-07-03] MEDS: ZIPRASIDONE MESYLATE 20 MG VIAL IM PRN ×2 (08:37→21:01)
[2016-07-03] MEDS: LORazepam 2 MG/ML VIAL IM PRN (08:37)
[2016-07-03] MEDS: ZIPRASIDONE HCL 80 MG CAP PO SCH (08:38)
[2016-07-03] MEDS: LORazepam 2 MG TAB PO SCH ×2 (08:38→21:00)
[2016-07-03] MEDS: MULTIVITAMINS/MINERALS THERAPEUTIC TAB PO SCH (09:00)
[2016-07-03] MEDS: NICOTINE 21 MG/24 HR PATCH T-DERMAL SCH (09:00)
[2016-07-03] MEDS: REMOVE OLD PATCH T-DERMAL SCH (09:00)
[2016-07-03] MEDS: predniSONE 5 MG TAB PO SCH (09:00)
[2016-07-03] MEDS: GABAPENTIN 400 MG CAP PO SCH ×2 (09:00→21:00)
--- NOTE | 2016-07-03 12:50 | HHI.PYPN ---
Subjective Remarks Patient seen in [place] with nurse Kristen, patient in [place] chair, patient is been cycling between loud intrusive and profane and dosing area patient also seen well eating lunch did acknowledge me by my name though no eye contact continue markedly disorganized. Patient continues noncompliant with her Geodon necessitating IM dosing. The a.m. dose to just increased yesterday will continue to observe Review of Systems Except as stated in HPI: all other systems reviewed are Neg Objective Alert: Yes [place]: Person, Place, Situation Mood: Agitated (less today) Affect: Labile (less today) Memory Intact: Comment (poor) Hallucinations: Auditory Delusions: Yes Delusion Type: Paranoid Suicidal: Ideation (denies) Homicidal: Ideation (denies) Insight/Judgement Very poor Vitals/IOs Vital Signs Date Time Temp Pulse Resp B/P Pulse Ox O2 Delivery O2 Flow Rate FiO2 07/03/16 02:05 97.4 72 17 103/58 95 Intake and Output 07/02/16 07/02/16 07/03/16 08:00 16:00 00:00 Intake Total 480 ml 1560 ml Balance 480 ml 1560 ml Assessment & Plan Problem List: (1) Schizoaffective disorder ICD Code: F25.9 Assessment & Plan Estimated LOS: days patient continues quite psychotic labile intrusive and confusing, with poor compliance medication Justification for Cont. Inpt. At this time patient would significantly decompensate if placed in a lower level of care Discharge Planning To be determined Request HC Surrog/Guard Advoc?: Yes Problem Qualifiers (1) Schizoaffective disorder: Qualified Code: F25.0 - Schizoaffective disorder, bipolar type Brad Stern MD Jul 03, 2016 12:50
[2016-07-03] MEDS: LORazepam 0.5 MG TAB PO PRN (18:44)
[2016-07-03] MEDS: ZIPRASIDONE HCL 60 MG CAP PO SCH (21:00)
[2016-07-03] MEDS: BACITRACIN TOP OINT 15 GM TUBE TOP SCH (21:00)
[2016-07-04] MEDS: MULTIVITAMINS/MINERALS THERAPEUTIC TAB PO SCH ×2 (08:45→09:00)
[2016-07-04] MEDS: LORazepam 2 MG TAB PO SCH ×4 (08:45→21:00)
[2016-07-04] MEDS: GABAPENTIN 400 MG CAP PO SCH ×4 (08:45→21:00)
[2016-07-04] MEDS: predniSONE 5 MG TAB PO SCH ×2 (08:45→09:00)
[2016-07-04] MEDS: NICOTINE 21 MG/24 HR PATCH T-DERMAL SCH (09:00)
[2016-07-04] MEDS: REMOVE OLD PATCH T-DERMAL SCH (09:00)
[2016-07-04] MEDS: ZIPRASIDONE HCL 80 MG CAP PO SCH (09:00)
[2016-07-04] MEDS: ZIPRASIDONE MESYLATE 20 MG VIAL IM PRN (09:36)
[2016-07-04] MEDS ORDERED: HALOPERIDOL LACTATE 5 MG/ML AMP IM SCH (12:30)
[2016-07-04] MEDS ORDERED: HALOPERIDOL LACTATE ORAL CONC 10 MG/5 ML CUP PO SCH (12:30)
--- NOTE | 2016-07-04 12:32 | HHI.PYPN ---
Subjective Remarks Patient seen in her room with nurse Dilia and medical student Nissa. Patient continues intermittently loud profane intrusive with periods of napping. Continues to need frequent when necessary's. Patient continues to refuse oral Geodon. It appears the Geodon IM is not helping this lady at this time. We'll discontinue the Geodon. Will start Haldol elixir 5 mg twice a day initially refuses then Haldol 5 mg IM in its place phone with permission of health care surrogate/guardian advocate Review of Systems Except as stated in HPI: all other systems reviewed are Neg Objective Alert: Yes [place]: Person, Place, Situation Mood: Agitated (less today) Affect: Labile (less today) Memory Intact: Comment (poor) Hallucinations: Auditory Delusions: Yes Delusion Type: Paranoid Suicidal: Ideation (denies) Homicidal: Ideation (denies) Insight/Judgement Very poor Vitals/IOs Vital Signs Date Time Temp Pulse Resp B/P Pulse Ox O2 Delivery O2 Flow Rate FiO2 07/03/16 02:05 97.4 72 17 103/58 95 Intake and Output 07/03/16 07/03/16 07/04/16 08:00 16:00 00:00 Intake Total 240 ml Balance 240 ml Assessment & Plan Problem List: (1) Schizoaffective disorder ICD Code: F25.9 Assessment & Plan Estimated LOS: days patient continue psychotic irritable labile. Please see medication adjustments above Justification for Cont. Inpt. At this time patient was significantly decompensated with placed in a lower level of care Discharge Planning To be determined Request HC Surrog/Guard Advoc?: Yes Problem Qualifiers (1) Schizoaffective disorder: Qualified Code: F25.0 - Schizoaffective disorder, bipolar type Brad Stern MD Jul 04, 2016 12:31
[2016-07-04 19:59] VITALS: BP_SYST 149; BP_SYST 160; BP_DIAS 101; BP_DIAS 94; PULSE 74; PULSE 92; O2SAT 92
[2016-07-04] MEDS: OLANZapine ODT 10 MG TAB PO SCH ×2 (20:02→21:00)
[2016-07-04] MEDS: BACITRACIN TOP OINT 15 GM TUBE TOP SCH (20:02)
[2016-07-04] MEDS: OLANZapine IM 10 MG VIAL IM SCH (21:51)
[2016-07-05 05:31] VITALS: BP 123/62; PULSE 84; RESP 18; O2SAT 95
[2016-07-05] MEDS: OLANZapine IM 10 MG VIAL IM SCH ×2 (09:00→20:45)
[2016-07-05] MEDS: LORazepam 2 MG TAB PO SCH ×2 (09:00→21:00)
[2016-07-05] MEDS: GABAPENTIN 400 MG CAP PO SCH ×2 (09:00→21:00)
[2016-07-05] MEDS: OLANZapine ODT 10 MG TAB PO SCH ×2 (09:00→21:00)
[2016-07-05] MEDS: predniSONE 5 MG TAB PO SCH (09:00)
[2016-07-05] MEDS: MULTIVITAMINS/MINERALS THERAPEUTIC TAB PO SCH (09:00)
--- NOTE | 2016-07-05 13:46 | HHI.PYPN ---
Subjective Remarks Pt seen and discussed with staff. Pt continues to refuse oral medications and has been receiving IM medications as a result. Pt remains easily agitated. She gets angry when MD approaches for interview ("How the hell did you get in here? ! Who is driving that car?!!) and quickly escalates. Interview ended for safety after pt lunges at MD and RN. She calms and lays back on bed after MD and RN leave room. Objective Alert: Yes [place]: Person, Place, Situation Mood: Agitated (less today) Affect: Labile (less today) Memory Intact: Comment (poor) Hallucinations: Auditory Delusions: Yes Delusion Type: Paranoid Suicidal: Ideation (denies) Homicidal: Ideation (denies) Insight/Judgement poor Vitals/IOs Vital Signs Date Time Temp Pulse Resp B/P Pulse Ox O2 Delivery O2 Flow Rate FiO2 07/05/16 05:31 84 18 123/62 95 07/03/16 02:05 97.4 Intake and Output 07/04/16 07/04/16 07/05/16 08:00 16:00 00:00 Intake Total 0 ml 0 ml 240 ml Balance 0 ml 0 ml 240 ml Assessment & Plan Problem List: (1) Schizoaffective disorder ICD Code: F25.9 Assessment & Plan Continue hospitalization for safety. Continue current tx plan. Estimated LOS: days Justification for Cont. Inpt. impairments in safety and reality construction Request HC Surrog/Guard Advoc?: Yes Problem Qualifiers (1) Schizoaffective disorder: Qualified Code: F25.0 - Schizoaffective disorder, bipolar type Meghna Batista MD Jul 05, 2016 13:46
[2016-07-05] MEDS: BACITRACIN TOP OINT 15 GM TUBE TOP SCH (21:00)
[2016-07-06 05:37] VITALS: BP 127/75; PULSE 87; RESP 19; TEMP 97.6; O2SAT 97
[2016-07-06] MEDS: LORazepam 2 MG TAB PO SCH ×2 (09:00→20:49)
[2016-07-06] MEDS: GABAPENTIN 400 MG CAP PO SCH ×2 (09:00→20:46)
[2016-07-06] MEDS: MULTIVITAMINS/MINERALS THERAPEUTIC TAB PO SCH (09:00)
[2016-07-06] MEDS: predniSONE 5 MG TAB PO SCH (09:00)
[2016-07-06] MEDS: OLANZapine ODT 10 MG TAB PO SCH ×2 (09:00→20:49)
[2016-07-06] MEDS: OLANZapine IM 10 MG VIAL IM SCH ×2 (10:34→20:50)
--- NOTE | 2016-07-06 15:13 | HHI.PYPN ---
Subjective Remarks Pt seen and discussed with staff. Pt remains delusional and disorganized and easily agitated. Continues to refuse oral medications. Objective Alert: Yes [place]: Person, Place, Situation Mood: Agitated Affect: Labile (less today) Memory Intact: Comment (poor) Hallucinations: Auditory Delusions: Yes Delusion Type: Paranoid Suicidal: Ideation (denies) Homicidal: Ideation (denies) Insight/Judgement poor Vitals/IOs Vital Signs Date Time Temp Pulse Resp B/P Pulse Ox O2 Delivery O2 Flow Rate FiO2 07/06/16 05:37 97.6 87 19 127/75 97 Intake and Output 07/05/16 07/05/16 07/06/16 08:00 16:00 00:00 Intake Total 240 ml 240 ml Balance 240 ml 240 ml Assessment & Plan Problem List: (1) Schizoaffective disorder ICD Code: F25.9 Assessment & Plan Continue current tx plan.Estimated LOS: days Justification for Cont. Inpt. impairments in safety Request HC Surrog/Guard Advoc?: Yes Problem Qualifiers (1) Schizoaffective disorder: Qualified Code: F25.0 - Schizoaffective disorder, bipolar type Meghna Batista MD Jul 06, 2016 15:13
[2016-07-06 19:57] VITALS: BP 150/80; PULSE 97; RESP 18; TEMP 97.8; O2SAT 97
[2016-07-06] MEDS: BACITRACIN TOP OINT 15 GM TUBE TOP SCH (20:50)
[2016-07-07 05:14] VITALS: BP 96/60; PULSE 60; RESP 16; TEMP 97.8; O2SAT 97
[2016-07-07] MEDS: predniSONE 5 MG TAB PO SCH (08:41)
[2016-07-07] MEDS: LORazepam 2 MG TAB PO SCH ×2 (08:41→21:25)
[2016-07-07] MEDS: GABAPENTIN 400 MG CAP PO SCH ×2 (08:41→21:00)
[2016-07-07] MEDS: MULTIVITAMINS/MINERALS THERAPEUTIC TAB PO SCH (08:41)
[2016-07-07] MEDS: OLANZapine ODT 10 MG TAB PO SCH ×2 (08:41→21:25)
[2016-07-07] MEDS: OLANZapine IM 10 MG VIAL IM SCH ×2 (08:58→21:00)
--- NOTE | 2016-07-07 14:25 | HHI.PYPN ---
Subjective Remarks Patient discussed with treatment team, chart review, patient's in and unit. And was cooperative this morning without difficulty and taking her a.m. Zyprexa , stating to the nurse that she feels the medicine is helping. For now we'll continue to encourage compliance with the medication Review of Systems Except as stated in HPI: all other systems reviewed are Neg Objective Alert: Yes [place]: Person, Place, Situation Mood: Agitated Affect: Labile (less today) Memory Intact: Comment (poor) Hallucinations: Auditory Delusions: Yes Delusion Type: Paranoid Suicidal: Ideation (denies) Homicidal: Ideation (denies) Insight/Judgement Poor Vitals/IOs Vital Signs Date Time Temp Pulse Resp B/P Pulse Ox O2 Delivery O2 Flow Rate FiO2 07/07/16 05:14 97.8 60 16 96/60 97 Intake and Output 07/06/16 07/06/16 07/07/16 08:00 16:00 00:00 Intake Total 620 ml 720 ml 240 ml Balance 620 ml 720 ml 240 ml Assessment & Plan Problem List: (1) Schizoaffective disorder ICD Code: F25.9 Assessment & Plan Estimated LOS: days patient continues somewhat loud intrusive vigilant though somewhat less in intensity. Showing some initial compliance with medication Justification for Cont. Inpt. At this time patient was significantly decompensate if placed at a lower level of care Discharge Planning To be determined Request HC Surrog/Guard Advoc?: Yes Problem Qualifiers (1) Schizoaffective disorder: Qualified Code: F25.0 - Schizoaffective disorder, bipolar type Brad Stern MD Jul 07, 2016 14:25
[2016-07-07 18:00] VITALS: BP 135/64; PULSE 75; RESP 18; TEMP 97.7; O2SAT 100
[2016-07-07] MEDS: BACITRACIN TOP OINT 15 GM TUBE TOP SCH (21:33)
[2016-07-08 05:03] VITALS: BP 108/67; PULSE 72; RESP 18; TEMP 97.6; O2SAT 96
[2016-07-08] MEDS: MULTIVITAMINS/MINERALS THERAPEUTIC TAB PO SCH (09:00)
[2016-07-08] MEDS: GABAPENTIN 400 MG CAP PO SCH ×2 (09:00→20:11)
[2016-07-08] MEDS: OLANZapine IM 10 MG VIAL IM SCH ×2 (09:00→20:11)
[2016-07-08] MEDS: predniSONE 5 MG TAB PO SCH (09:04)
[2016-07-08] MEDS: LORazepam 2 MG TAB PO SCH (09:04)
[2016-07-08] MEDS: OLANZapine ODT 10 MG TAB PO SCH (09:04)
--- NOTE | 2016-07-08 10:26 | HHI.PYPN ---
Subjective Remarks Patient seen in her room with nurse Kate, chart reviewed, patient earlier was quite loud and intrusive in her room. At this time she is calmer continues markedly disorganized and intense with a very poor eye contact. Will decrease schedule Ativan from 2 mg twice a day to 1 mg twice a day, and increase scheduled Zyprexa from 10 mg twice a day to 15 mg twice a day Review of Systems Except as stated in HPI: all other systems reviewed are Neg Objective Alert: Yes [place]: Person, Place, Situation Mood: Agitated Affect: Labile (less today) Memory Intact: Comment (poor) Hallucinations: Auditory Delusions: Yes Delusion Type: Paranoid Suicidal: Ideation (denies) Homicidal: Ideation (denies) Insight/Judgement Very poor Vitals/IOs Vital Signs Date Time Temp Pulse Resp B/P Pulse Ox O2 Delivery O2 Flow Rate FiO2 07/08/16 05:03 97.6 72 18 108/67 96 Intake and Output 07/07/16 07/07/16 07/08/16 08:00 16:00 00:00 Intake Total 0 ml 0 ml Balance 0 ml 0 ml Assessment & Plan Problem List: (1) Schizoaffective disorder ICD Code: F25.9 Assessment & Plan Estimated LOS: days patient remained psychotic intrusive volatile and labile. See medication adjustments above Justification for Cont. Inpt. At this time patient was significantly decompensate if placed in a lower level of care Discharge Planning To be determined Request HC Surrog/Guard Advoc?: Yes Problem Qualifiers (1) Schizoaffective disorder: Qualified Code: F25.0 - Schizoaffective disorder, bipolar type Brad Stern MD Jul 08, 2016 10:26
[2016-07-08] MEDS: OLANZapine ODT 15 MG TAB PO SCH (20:08)
[2016-07-08] MEDS: LORazepam 1 MG TAB PO SCH (20:08)
[2016-07-08] MEDS: BACITRACIN TOP OINT 15 GM TUBE TOP SCH (21:00)
[2016-07-08] MEDS: diphenhydrAMINE HCL 50 MG/ML VIAL IM PRN (22:19)
[2016-07-09 06:07] VITALS: BP 90/64; PULSE 78; RESP 18
[2016-07-09] MEDS: LORazepam 1 MG TAB PO SCH ×2 (09:00→20:25)
[2016-07-09] MEDS: OLANZapine ODT 15 MG TAB PO SCH ×2 (09:00→20:25)
[2016-07-09] MEDS: MULTIVITAMINS/MINERALS THERAPEUTIC TAB PO SCH (09:00)
[2016-07-09] MEDS: predniSONE 5 MG TAB PO SCH (09:00)
[2016-07-09] MEDS: OLANZapine IM 10 MG VIAL IM SCH ×2 (09:00→20:29)
[2016-07-09] MEDS: GABAPENTIN 400 MG CAP PO SCH ×2 (09:00→20:25)
[2016-07-09] MEDS: BACITRACIN TOP OINT 15 GM TUBE TOP SCH (20:26)
[2016-07-10 06:43] VITALS: BP 142/88; PULSE 89; RESP 16; TEMP 96.7; O2SAT 96
[2016-07-10] MEDS: OLANZapine IM 10 MG VIAL IM SCH ×2 (09:00→20:27)
[2016-07-10] MEDS: OLANZapine ODT 15 MG TAB PO SCH ×2 (09:00→20:28)
[2016-07-10] MEDS: predniSONE 5 MG TAB PO SCH (09:00)
[2016-07-10] MEDS: GABAPENTIN 400 MG CAP PO SCH ×2 (09:00→19:57)
[2016-07-10] MEDS: MULTIVITAMINS/MINERALS THERAPEUTIC TAB PO SCH (09:00)
[2016-07-10] MEDS: LORazepam 1 MG TAB PO SCH ×2 (09:00→19:58)
--- NOTE | 2016-07-10 11:18 | HHI.PYPN ---
Subjective Remarks Patient seen in day room with nurse Ilene, patient continues to cycle between quiet almost napping to loud profane and intrusive. Patient compliant with medications. At time she appears to be responding to internal stimuli and talking to the wall. Patient is compliant with medications. For now continue treatment Review of Systems Except as stated in HPI: all other systems reviewed are Neg Objective Alert: Yes [place]: Person, Place, Situation Mood: Agitated Affect: Labile (less today) Memory Intact: Comment (poor) Hallucinations: Auditory Delusions: Yes Delusion Type: Paranoid Suicidal: Ideation (denies) Homicidal: Ideation (denies) Insight/Judgement Very poor Vitals/IOs Vital Signs Date Time Temp Pulse Resp B/P Pulse Ox O2 Delivery O2 Flow Rate FiO2 07/10/16 06:43 96.7 89 16 142/88 96 Intake and Output 07/09/16 07/09/16 07/09/16 07:59 15:59 23:59 Intake Total 480 ml Balance 480 ml Assessment & Plan Problem List: (1) Schizoaffective disorder ICD Code: F25.9 Assessment & Plan Estimated LOS: days patient continues confused disoriented loud intrusive at times Justification for Cont. Inpt. At this time the patient would significantly decompensate if placed in the lower level of care Discharge Planning To be determined Request HC Surrog/Guard Advoc?: Yes Problem Qualifiers (1) Schizoaffective disorder: Qualified Code: F25.0 - Schizoaffective disorder, bipolar type Brad Stern MD Jul 10, 2016 11:18
[2016-07-10] MEDS: BACITRACIN TOP OINT 15 GM TUBE TOP SCH (19:58)
[2016-07-11] MEDS: LORazepam 0.5 MG TAB PO PRN (02:45)
[2016-07-11] MEDS: diphenhydrAMINE HCL 50 MG CAP PO PRN (02:45)
[2016-07-11 06:40] VITALS: BP 114/65; PULSE 76; RESP 16; TEMP 96.4; O2SAT 95
[2016-07-11] MEDS: predniSONE 5 MG TAB PO SCH (09:00)
[2016-07-11] MEDS: MULTIVITAMINS/MINERALS THERAPEUTIC TAB PO SCH (09:00)
[2016-07-11] MEDS: OLANZapine IM 10 MG VIAL IM SCH ×2 (09:00→21:00)
[2016-07-11] MEDS: OLANZapine ODT 15 MG TAB PO SCH ×2 (09:00→20:16)
[2016-07-11] MEDS: GABAPENTIN 400 MG CAP PO SCH ×2 (09:00→20:17)
[2016-07-11] MEDS: LORazepam 1 MG TAB PO SCH ×2 (09:00→20:17)
--- NOTE | 2016-07-11 12:08 | HHI.PYPN ---
Subjective Remarks Patient seen in her room with nurse Kate, patient sitting on her bed talking to herself stated "I'm going to go to" she somewhat reluctantly acknowledges some vague female auditory hallucinations. She at times continues to have mood lability with intrusiveness very loud yelling speech, patient with mixed compliant medication Review of Systems Except as stated in HPI: all other systems reviewed are Neg Objective Alert: Yes [place]: Person, Place, Situation Mood: Agitated Affect: Labile (less today) Memory Intact: Comment (poor) Hallucinations: Auditory Delusions: Yes Delusion Type: Paranoid Suicidal: Ideation (denies) Homicidal: Ideation (denies) Insight/Judgement Very poor Vitals/IOs Vital Signs Date Time Temp Pulse Resp B/P Pulse Ox O2 Delivery O2 Flow Rate FiO2 07/11/16 06:40 96.4 76 16 114/65 95 Intake and Output 07/10/16 07/10/16 07/10/16 07:59 15:59 23:59 Intake Total 1080 ml 840 ml Balance 1080 ml 840 ml Assessment & Plan Problem List: (1) Schizoaffective disorder ICD Code: F25.9 Assessment & Plan Estimated LOS: days patient remains somewhat psychotic loud intrusive Justification for Cont. Inpt. At this time the patient would significantly decompensate if placed in the lower level of care Discharge Planning To be determined Request HC Surrog/Guard Advoc?: Yes Problem Qualifiers (1) Schizoaffective disorder: Qualified Code: F25.0 - Schizoaffective disorder, bipolar type Brad Stern MD Jul 11, 2016 12:08
[2016-07-11] MEDS: BACITRACIN TOP OINT 15 GM TUBE TOP SCH (20:16)
[2016-07-12 06:23] VITALS: BP 110/75; PULSE 64; RESP 18; TEMP 96.8; O2SAT 97
[2016-07-12] MEDS: MULTIVITAMINS/MINERALS THERAPEUTIC TAB PO SCH (09:00)
[2016-07-12] MEDS: GABAPENTIN 400 MG CAP PO SCH ×2 (09:00→20:50)
[2016-07-12] MEDS: OLANZapine ODT 15 MG TAB PO SCH ×2 (09:00→20:50)
[2016-07-12] MEDS: OLANZapine IM 10 MG VIAL IM SCH ×2 (09:00→21:00)
[2016-07-12] MEDS: predniSONE 5 MG TAB PO SCH (09:45)
[2016-07-12] MEDS: LORazepam 1 MG TAB PO SCH ×2 (09:45→20:50)
--- NOTE | 2016-07-12 12:53 | HHI.PYPN ---
Subjective Remarks Patient was seen and case discussed with nursing. Per nursing she has been selective with medications today. Before coming into the room she was talking to herself, responding to internal stimuli. She is alert and oriented 1. Complaining of visual hallucinations of people and then starts feeling various parts of her mattress. Objective Alert: Yes [place]: Person, Place, Situation Mood: Agitated Affect: Labile (less today) Memory Intact: Comment (poor) Hallucinations: Auditory, Visual Delusions: Yes Delusion Type: Paranoid Suicidal: Ideation (denies) Homicidal: Ideation (denies) Insight/Judgement Poor Vitals/IOs Vital Signs Date Time Temp Pulse Resp B/P Pulse Ox O2 Delivery O2 Flow Rate FiO2 07/12/16 06:23 96.8 64 18 110/75 97 Intake and Output 07/11/16 07/11/16 07/12/16 08:00 16:00 00:00 Intake Total 480 ml 0 ml 360 ml Balance 480 ml 0 ml 360 ml Assessment & Plan Problem List: (1) Schizoaffective disorder ICD Code: F25.9 Assessment & Plan Continue current treatment plan Justification for Cont. Inpt. Patient would decompensate in a less restrictive setting Request HC Surrog/Guard Advoc?: Yes Problem Qualifiers (1) Schizoaffective disorder: Qualified Code: F25.0 - Schizoaffective disorder, bipolar type Jerson Sanchez DO Jul 12, 2016 12:53
[2016-07-12] MEDS: diphenhydrAMINE HCL 50 MG/ML VIAL IM PRN (17:11)
[2016-07-12 20:07] VITALS: BP 149/73; PULSE 94; RESP 18; TEMP 96.9; O2SAT 95
[2016-07-12] MEDS: BACITRACIN TOP OINT 15 GM TUBE TOP SCH (20:51)
[2016-07-13 06:20] VITALS: BP 105/78; PULSE 59; RESP 18; TEMP 96.8; O2SAT 100
[2016-07-13] MEDS: OLANZapine ODT 15 MG TAB PO SCH ×2 (09:00→20:12)
[2016-07-13] MEDS: OLANZapine IM 10 MG VIAL IM SCH ×2 (09:00→20:13)
[2016-07-13] MEDS: predniSONE 5 MG TAB PO SCH (09:33)
[2016-07-13] MEDS: LORazepam 1 MG TAB PO SCH ×2 (09:33→20:13)
[2016-07-13] MEDS: MULTIVITAMINS/MINERALS THERAPEUTIC TAB PO SCH (09:33)
[2016-07-13] MEDS: GABAPENTIN 400 MG CAP PO SCH ×2 (09:33→20:13)
--- NOTE | 2016-07-13 12:33 | HHI.PYPN ---
Subjective Remarks Patient was seen and case discussed with nursing. Patient is pleasant and cooperative with exam. She is grossly confused and disorganized. Picking at the air and responding to internal stimuli. She is alert and oriented 1. Is compliant with medications. Denies suicidal ideations thought or plan. Largely seclusive to self Objective Alert: Yes [place]: Person, Place, Situation Mood: Agitated Affect: Labile (less today) Memory Intact: Comment (poor) Hallucinations: Auditory, Visual Delusions: Yes Delusion Type: Paranoid Suicidal: Ideation (denies) Homicidal: Ideation (denies) Insight/Judgement Poor Vitals/IOs Vital Signs Date Time Temp Pulse Resp B/P Pulse Ox O2 Delivery O2 Flow Rate FiO2 07/13/16 06:20 96.8 59 18 105/78 100 Intake and Output 07/12/16 07/12/16 07/13/16 08:00 16:00 00:00 Intake Total 1560 ml Balance 1560 ml Assessment & Plan Problem List: (1) Schizoaffective disorder ICD Code: F25.9 Assessment & Plan Continue current treatment plan Justification for Cont. Inpt. Patient will decompensate outside of a less restrictive setting Request HC Surrog/Guard Advoc?: Yes Problem Qualifiers (1) Schizoaffective disorder: Qualified Code: F25.0 - Schizoaffective disorder, bipolar type Jerson Sanchez DO Jul 13, 2016 12:33
[2016-07-13] MEDS: diphenhydrAMINE HCL 50 MG CAP PO PRN (20:13)
[2016-07-13] MEDS: BACITRACIN TOP OINT 15 GM TUBE TOP SCH (20:14)
[2016-07-14 05:35] VITALS: BP 127/58; PULSE 72; TEMP 97.6
--- NOTE | 2016-07-14 08:53 | HHI.PYPN ---
Subjective Remarks This is a late note dictated for my visit with patient on 07/09/16. Patient was seen on that day. But I forgot to dictate a note. Patient seen on that today continue to show her irritability and confusion, along with isolation, but she was starting to show increase compliance with medication. At that time I felt we should continue treatment without any change Review of Systems Except as stated in HPI: all other systems reviewed are Neg Objective Alert: Yes [place]: Person, Place, Situation Mood: Agitated Affect: Labile (less today) Memory Intact: Comment (poor) Hallucinations: Auditory, Visual Delusions: Yes Delusion Type: Paranoid Suicidal: Ideation (denies) Homicidal: Ideation (denies) Insight/Judgement Very poor Vitals/IOs Vital Signs Date Time Temp Pulse Resp B/P Pulse Ox O2 Delivery O2 Flow Rate FiO2 07/14/16 05:35 97.6 72 127/58 07/13/16 06:20 18 100 Intake and Output 07/13/16 07/13/16 07/14/16 08:00 16:00 00:00 Intake Total 960 ml 720 ml Balance 960 ml 720 ml Assessment & Plan Problem List: (1) Schizoaffective disorder ICD Code: F25.9 Assessment & Plan Estimated LOS: days on 07/09/16 flow patient continued to meet criteria for inpatient psychiatric hospitalization remains somewhat psychotic irritable and isolating Justification for Cont. Inpt. At that time it is felt patient would severely decompensate if placed in a lower level of care Discharge Planning To be determined Request HC Surrog/Guard Advoc?: Yes Problem Qualifiers (1) Schizoaffective disorder: Qualified Code: F25.0 - Schizoaffective disorder, bipolar type Brad Stern MD Jul 14, 2016 08:53
[2016-07-14] MEDS: MULTIVITAMINS/MINERALS THERAPEUTIC TAB PO SCH (09:00)
[2016-07-14] MEDS: OLANZapine IM 10 MG VIAL IM SCH ×2 (09:00→21:00)
[2016-07-14] MEDS: OLANZapine ODT 15 MG TAB PO SCH ×2 (09:00→21:00)
[2016-07-14] MEDS: predniSONE 5 MG TAB PO SCH (10:01)
[2016-07-14] MEDS: LORazepam 1 MG TAB PO SCH ×2 (10:01→21:00)
[2016-07-14] MEDS: GABAPENTIN 400 MG CAP PO SCH ×2 (10:01→21:00)
--- NOTE | 2016-07-14 16:55 | HHI.PYPN ---
Subjective Remarks Patient discussed with treatment team, chart reviewed, patient seen on unit, she continues markedly confused and disorganized since responding to internal stimuli. For now continue treatment Review of Systems Except as stated in HPI: all other systems reviewed are Neg Objective Alert: Yes [place]: Person, Place, Situation Mood: Agitated Affect: Labile (less today) Memory Intact: Comment (poor) Hallucinations: Auditory, Visual Delusions: Yes Delusion Type: Paranoid Suicidal: Ideation (denies) Homicidal: Ideation (denies) Insight/Judgement Very poor Vitals/IOs Vital Signs Date Time Temp Pulse Resp B/P Pulse Ox O2 Delivery O2 Flow Rate FiO2 07/14/16 05:35 97.6 72 127/58 07/13/16 06:20 18 100 Intake and Output 07/13/16 07/13/16 07/14/16 08:00 16:00 00:00 Intake Total 960 ml 720 ml Balance 960 ml 720 ml Assessment & Plan Problem List: (1) Schizoaffective disorder ICD Code: F25.9 Assessment & Plan Estimated LOS: days patient continues confusion psychotic, continues compliant with medication Justification for Cont. Inpt. At this time the patient would significantly decompensated placed in a lower level of care Discharge Planning To be determined Request HC Surrog/Guard Advoc?: Yes Problem Qualifiers (1) Schizoaffective disorder: Qualified Code: F25.0 - Schizoaffective disorder, bipolar type Brad Stern MD Jul 14, 2016 16:55
[2016-07-14] MEDS: BACITRACIN TOP OINT 15 GM TUBE TOP SCH (21:00)
[2016-07-15 05:34] VITALS: BP 130/74; PULSE 96; RESP 16; TEMP 98.4; O2SAT 93
[2016-07-15] MEDS: MULTIVITAMINS/MINERALS THERAPEUTIC TAB PO SCH (09:00)
[2016-07-15] MEDS: OLANZapine IM 10 MG VIAL IM SCH ×2 (09:00→21:00)
[2016-07-15] MEDS: OLANZapine ODT 15 MG TAB PO SCH ×2 (09:00→21:00)
[2016-07-15] MEDS: predniSONE 5 MG TAB PO SCH (09:43)
[2016-07-15] MEDS: LORazepam 1 MG TAB PO SCH ×2 (09:43→21:00)
[2016-07-15] MEDS: GABAPENTIN 400 MG CAP PO SCH ×2 (09:43→21:00)
--- NOTE | 2016-07-15 12:27 | HHI.PYPN ---
Subjective Remarks Patient seen in [place] with nurse, patient sitting on the chair on her walker continues to talk herself with very poor eye contact, markedly disorganized with flight of ideas marked tangentiality and circumstantiality. Patient showing increase compliance with medication. There is some decrease in the yelling screaming and intrusiveness Review of Systems Except as stated in HPI: all other systems reviewed are Neg Objective Alert: Yes [place]: Person, Place, Situation Mood: Agitated Affect: Labile (less today) Memory Intact: Comment (poor) Hallucinations: Auditory, Visual Delusions: Yes Delusion Type: Paranoid Suicidal: Ideation (denies) Homicidal: Ideation (denies) Insight/Judgement Very poor Vitals/IOs Vital Signs Date Time Temp Pulse Resp B/P Pulse Ox O2 Delivery O2 Flow Rate FiO2 07/15/16 05:34 98.4 96 16 130/74 93 Intake and Output 07/14/16 07/14/16 07/15/16 08:00 16:00 00:00 Intake Total 0 ml 960 ml 720 ml Balance 0 ml 960 ml 720 ml Assessment & Plan Problem List: (1) Schizoaffective disorder ICD Code: F25.9 Assessment & Plan Estimated LOS: days patient continues somewhat confused and irritable talking to herself at times appears to be responding to internal stimuli. Patient is compliant with most medications Justification for Cont. Inpt. At this time patient would significantly decompensated if place to the lower level of care Discharge Planning To be determined Request HC Surrog/Guard Advoc?: Yes Problem Qualifiers (1) Schizoaffective disorder: Qualified Code: F25.0 - Schizoaffective disorder, bipolar type Brad Stern MD Jul 15, 2016 12:26
[2016-07-15 19:00] VITALS: BP 129/74; PULSE 92; RESP 16
[2016-07-15] MEDS: LORazepam 0.5 MG TAB PO PRN (21:00)
[2016-07-15] MEDS: BACITRACIN TOP OINT 15 GM TUBE TOP SCH (21:00)
[2016-07-16 06:20] VITALS: BP 121/60; PULSE 77; RESP 16
[2016-07-16] MEDS: OLANZapine ODT 15 MG TAB PO SCH ×2 (09:00→21:00)
[2016-07-16] MEDS: OLANZapine IM 10 MG VIAL IM SCH ×2 (09:00→21:00)
[2016-07-16] MEDS: MULTIVITAMINS/MINERALS THERAPEUTIC TAB PO SCH (09:59)
[2016-07-16] MEDS: predniSONE 5 MG TAB PO SCH (09:59)
[2016-07-16] MEDS: GABAPENTIN 400 MG CAP PO SCH ×2 (09:59→21:00)
[2016-07-16] MEDS: LORazepam 1 MG TAB PO SCH ×2 (09:59→21:00)
--- NOTE | 2016-07-16 11:10 | HHI.PYPN ---
Subjective Remarks Patient seen in day room with nurse Ally, patient continues markedly confused allow intrusive alternating with quiet periods when she is staring at her lap. Compliant medications. For now continue treatment Review of Systems Except as stated in HPI: all other systems reviewed are Neg Objective Alert: Yes [place]: Person, Place, Situation Mood: Agitated Affect: Labile (less today) Memory Intact: Comment (poor) Hallucinations: Auditory, Visual Delusions: Yes Delusion Type: Paranoid Suicidal: Ideation (denies) Homicidal: Ideation (denies) Insight/Judgement Very poor Vitals/IOs Vital Signs Date Time Temp Pulse Resp B/P Pulse Ox O2 Delivery O2 Flow Rate FiO2 07/16/16 06:20 77 16 121/60 07/15/16 05:34 98.4 93 Intake and Output 07/15/16 07/15/16 07/16/16 08:00 16:00 00:00 Intake Total 240 ml 840 ml 720 ml Balance 240 ml 840 ml 720 ml Assessment & Plan Problem List: (1) Schizoaffective disorder ICD Code: F25.9 Assessment & Plan Estimated LOS: days patient continues psychotic irritable labile somewhat confused, though compliant medications. Justification for Cont. Inpt. At this time patient would significantly decompensated placed at a lower level of care Discharge Planning To be determined Request HC Surrog/Guard Advoc?: Yes Problem Qualifiers (1) Schizoaffective disorder: Qualified Code: F25.0 - Schizoaffective disorder, bipolar type Brad Stern MD Jul 16, 2016 11:10
[2016-07-16] MEDS: LORazepam 0.5 MG TAB PO PRN (11:50)
[2016-07-16 19:17] VITALS: BP 115/49; PULSE 80; RESP 16; TEMP 97.8; O2SAT 99
[2016-07-16] MEDS: BACITRACIN TOP OINT 15 GM TUBE TOP SCH (21:00)
[2016-07-17 05:36] VITALS: BP 123/79; PULSE 109; RESP 18; TEMP 97.6
[2016-07-17] MEDS: LORazepam 1 MG TAB PO SCH (08:12)
[2016-07-17] MEDS: predniSONE 5 MG TAB PO SCH (08:12)
[2016-07-17] MEDS: GABAPENTIN 400 MG CAP PO SCH (08:12)
[2016-07-17] MEDS: MULTIVITAMINS/MINERALS THERAPEUTIC TAB PO SCH (08:13)
[2016-07-17] MEDS: OLANZapine ODT 15 MG TAB PO SCH (08:13)
[2016-07-17] MEDS: OLANZapine IM 10 MG VIAL IM SCH (09:00)
[2016-07-17] MEDS ORDERED: LORA-474 PO (09:55)
[2016-07-17] MEDS ORDERED: THERM PO (09:55)
[2016-07-17] MEDS ORDERED: NEUR400C PO (09:55)
[2016-07-17] MEDS ORDERED: PRED5TAB PO (09:55)
[2016-07-17] MEDS ORDERED: OLANZ15 PO (09:55)
--- NOTE | 2016-07-17 10:07 | HHI.DS ---
Psychiatry Discharge Summary Inpatient Psychiatric care?: Yes Advance Directive: No Reason Not Provided: unable to assess Mental Health AdvanceDirective: [place] and Number: unable to assess Health Care Proxy: [place] and Phone Number: her sister signed for her medications Admission Admission Date Jun 18, 2016 at 07:02 Admission Diagnosis: (1) Schizoaffective disorder ICD Code: F25.9 Brief History Ms. Sun is a 70-year-old female with a history of bipolar illness versus primary psychotic disorder who presents under a [place]on act from her [facility] facility alleging agitation and medication refusal. Reviewing the electronic medical record, I note the patient was admitted psychiatrically most recently here under Dr. Garcia in 2012 with a discharge diagnosis of bipolar manic. Patient seen and examined. Case discussed with nurse in the J-pod. Per nursing staff, patient has been quite agitated in the J-pod and has required Zyprexa IM for the management of agitation. On my examination this morning, patient is apparently somewhat calmer than she had previously been her remains quite irritable and irascible. Her thought process is quite disorganized. She says "I don't know why" she is here. She is oriented to person and [place]. She denies living at [facility]. She says "they moved to fast. The room is bugged. I can't take it anymore over there. I don't want to stay there. I don 't want to stay here." When I ask about audiovisual hallucination she says "I have voices. Loud couch." She also endorses hearing static. She is quite dysphoric. She denies any SI or HI but seems unreliable to contract for safety in her present state. Limited psychiatric interview because of patient's degree of thought disorganization. Unable to obtain meaningful past psychiatric, family, chemical dependency or social history from the patient because of her degree of thought disorganization. She apparently has some sort of history. She is unable to tell me what branch of the that she served in. She says that she is unmarried and has no children. She says that she attended [employer] but cannot tell me what she studied there. I reviewed the documentation that accompanied the patient from her facility including the medication administration record. 06/18/16 Above note dictated by Dr. El garcia reviewed and agreed with. Patient is 70-year-old white female well known to us from multiple prior hospitalizations comes her under [place] act from her long-term. Patient seen and initially admitted by to the 2500 unit per I will follow the patient. Dr. Garcia has signed first opinion petition supporting [place] act. Patient seen by me on unit patient continues loud intrusive profane with rapid pressured speech showing no insight into her disease. At this time I agree with Dr. chair olsen patient does meet criteria for involuntary psychiatric hospitalization under the [place]on act. Thus I'll cosign second opinion petition supporting Pinon act Tobacco Use In Past 30 Days: Cigarettes But Not Daily Alcohol Use: Never Hospital Course Patient's hospital course initially somewhat chaotic with patient ranging from calm mildly confused isolating to marked lability profanity loud screaming voice making staff intervention markedly difficult. As patient's compliance with medication improve the frequency duration and intensity of the outbursts have diminished. Her disorganization continues however at times she show some relevancy with her speech. Patient was seen by staff from [facility] today. They are willing to have patient return to their facility for further care. They're willing to have patient return to the facility today. At This time I feel patient has reached maximum benefit of this hospitalization. There are chronic behaviors that the facility is well aware of and willing to work with and tolerate. Thus patient will be discharged today with Rx 1 month, to [facility], follow-up outpatient [facility] Results Blood Pressure 123 / 79 Vital Signs Date Time Temp Pulse Resp B/P Pulse Ox O2 Delivery O2 Flow Rate FiO2 07/17/16 05:36 97.6 109 18 123/79 07/16/16 19:17 99 Urine toxicology negative Summary of Procedures None done Imaging Last Impressions Hip and Pelvis X-Ray 07/02/16 0000 Signed Impressions: Service Date/Time: Saturday, July 02, 2016 16:10 - CONCLUSION: 1. There is no evidence of acute fracture. El Wilkins MD Chest X-Ray 06/18/16 0000 Signed Impressions: Service Date/Time: Saturday, June 18, 2016 16:43 - CONCLUSION: No acute disease. Brad Tucker MD Pending results at discharge: No Medications # of Antipsychotic meds at D/C: 1 Approp Antipsych med options 1 - Minimum of three failed multiple trials of monotherapy. 2 - Documented plan to taper to monotherapy due to previous use of multiple meds OR cross-taper in progress at D/C. 3 - Documentation of augmentation of Clozapine. 4 - Justification other than those listed in allowable values 1-3, document here : Discharge Discharge Date: Jul 17, 2016 Discharge Diagnosis: (1) Schizoaffective disorder Diagnosis: Principal ICD Code: F25.9 Mental Status Exam at Disch Alert labile at times irritable white female appears stated age sitting in [place] chair or sitting at times on her walker her mood is euthymic irritable, affect shows increased range and intensity, speech rapid at times pressure markedly tangential and circumstantial. Then auditory or visual hallucinations noted at time she appears be responding to internal stimuli patient times vigilant with no gross psychosis. She is normal active walking some difficulty with a walker and 69 judgment is quite poor cognition somewhat impaired Pt Condition on Discharge: Stable Discharge Disposition: Discharge to SNF Discharge Instructions Diet Instructions: As Tolerated, No Restrictions Activities you can perform: Regular-No Restrictions Scheduled Appointment: [facility] Discharge Time <= 30 minutes Discharge/Advance Care Plan Health Problems: (1) Schizoaffective disorder Goals to promote your health * To prevent worsening of your condition and complications * To maintain your health at the optimal level Directions to meet your goals Take your medications as prescribed Follow your dietary instruction Follow activity as directed Keep your appointments as scheduled Take your immunizations and boosters as scheduled If your symptoms worsen call your PCP, if no PCP go to Urgent Care Center or Emergency Room For 05/01 questions related to your inpatient stay or results of tests pending at discharge, please contact Dr. Brad Stern at Smoking is Dangerous to Your Health. Avoid second hand smoking Problem Qualifiers (1) Schizoaffective disorder: Qualified Code: F25.0 - Schizoaffective disorder, bipolar type Brad Stern MD Jul 17, 2016 10:07
== END 2016-07-17 15:45 | DRG 885 ==
LOC: NEPC 12:13 → NEDA 06-18 07:02 → H250 06-18 08:05
PROVIDERS: ADMIT Psychiatry & Neurology Psychiatry; ATTEND Psychiatry & Neurology Psychiatry
DX: F25.0 Schizoaffective disorder, bipolar type (principal); J44.9 Chronic obstructive pulmonary disease, unspecified; F17.210 Nicotine dependence, cigarettes, uncomplicated; L98.8 Other specified disorders of the skin and subcutaneous tissue; Z91.14 Patient's other noncompliance with medication regimen
CPT/HCPCS: 71010; 73502; 80048; 80053; 80061; 80307; 80320; 81001; 83036; 85025; 93005; 94640; 96372; J1200; J2060; J3486; J7512; Q0163